=== PATIENT | female | born 1935 | race Caucasian/White ===

== ENCOUNTER 2016-05-24 10:04 | Outpatient (CLI) ==
[2016-02-26 11:22] VITALS: BMI 34.1
[2016-05-24 15:29] LABS: BASOPHILS % (AUTO) 0.7 % (0.0-3.0); EOSINOPHILS # (AUTO) 0.1 K/ul (0.0-0.7); EOSINOPHILS % (AUTO) 1.6 % (0.0-7.0); HEMATOCRIT 36.7 % (37.0-47.0); HEMOGLOBIN 10.9 g/dl (12.0-16.0); LYMPHOCYTES # (AUTO) 1.9 K/uL (0.60-3.4); LYMPHOCYTES % (AUTO) 45.2 (10.0-50.0); MEAN CORPUSCULAR HEMOGLOBIN 25.6 pg (27.0-31.0); MEAN CORPUSCULAR HGB CONC 29.7 (31.8-35.4); MEAN CORPUSCULAR VOLUME 86.4 fl (81.0-99.0); MONOCYTES # (AUTO) 0.6 K/uL (0.4-2.0); MONOCYTES % (AUTO) 12.8 (0-10); NEUTROPHILS # (AUTO) 1.7 K/ul (2.0-6.9); NEUTROPHILS % (AUTO) 39.7; PLATELET COUNT 239 10^3/uL (140-440); RED BLOOD COUNT 4.25 10^6/ul (4.20-5.40); WHITE BLOOD COUNT 4.29 K/ul (4.6-10.2)
[2016-05-24 17:16] LABS: PROTHROMBIN TIME 27.6 SEC (9.3-11.0)
[2016-05-24 17:32] LABS: ALBUMIN 3.8 g/dL (3.4-5.0); ALBUMIN/GLOBULIN RATIO 1.27; ANION GAP 13.3; BILIRUBIN,TOTAL 0.49 mg/dL (0.00-1.20); BUN/CREATININE RATIO 21.49; CALCIUM 9.5 mg/dL (8.2-10.2); CHOL/HDL RATIO 3.7 (4.5-5.5); CREATININE 1.07 mg/dL (0.60-1.30); POTASSIUM 4.3 mmol/L (3.5-5.10); TOTAL PROTEIN 6.8 g/dL (5.8-8.1)
== END 2016-05-24 10:05 | disposition home or self-care (01) ==
LOC: LAB 10:04
PROVIDERS: ATTEND General Practice
DX: D64.9 Anemia, unspecified (principal); I82.812 Embolism and thrombosis of superficial veins of left lower extremity; R73.09 Other abnormal glucose; I10 Essential (primary) hypertension; N18.3 Chronic kidney disease, stage 3 (moderate); K21.9 Gastro-esophageal reflux disease without esophagitis; Z86.718 Personal history of other venous thrombosis and embolism; Z79.899 Other long term (current) drug therapy
CPT/HCPCS: 36415; 80053; 80061; 83036; 85025; 85610

== ENCOUNTER 2016-06-28 16:18 | Outpatient (CLI) | payer OTHER ==
[2016-02-26 11:22] VITALS: BMI 34.1
[2016-06-28 17:21] LABS: PROTHROMBIN TIME 19.3 SEC (9.3-11.0)
== END 2016-06-28 16:19 | disposition home or self-care (01) ==
LOC: LAB 16:18
PROVIDERS: ATTEND General Practice
DX: Z51.81 Encounter for therapeutic drug level monitoring (principal); Z79.01 Long term (current) use of anticoagulants; Z86.718 Personal history of other venous thrombosis and embolism
CPT/HCPCS: 36415; 85610

== ENCOUNTER 2016-07-17 17:19 | Outpatient (CLI) ==
[2016-02-26 11:22] VITALS: BMI 34.1
[2016-07-17 18:12] LABS: BASOPHILS % (AUTO) 0.5 % (0.0-3.0); EOSINOPHILS # (AUTO) 0.1 K/ul (0.0-0.7); EOSINOPHILS % (AUTO) 1.2 % (0.0-7.0); HEMATOCRIT 34.6 % (37.0-47.0); HEMOGLOBIN 10.7 g/dl (12.0-16.0); IMMATURE GRANULOCYTE % (AUTO) 0.2 % (0.0-5.0); LYMPHOCYTES % (AUTO) 34.2 (10.0-50.0); MEAN CORPUSCULAR HEMOGLOBIN 25.5 pg (27.0-31.0); MEAN CORPUSCULAR HGB CONC 30.9 (31.8-35.4); MEAN CORPUSCULAR VOLUME 82.6 fl (81.0-99.0); MONOCYTES # (AUTO) 0.6 K/uL (0.4-2.0); MONOCYTES % (AUTO) 10.8 (0-10); NEUTROPHILS # (AUTO) 3.1 K/ul (2.0-6.9); NEUTROPHILS % (AUTO) 53.1; PLATELET COUNT 246 10^3/uL (140-440); RED BLOOD COUNT 4.19 10^6/ul (4.20-5.40); WHITE BLOOD COUNT 5.91 K/ul (4.6-10.2)
[2016-07-17 18:38] LABS: FLU INTERNAL QC INTERNAL QC VALID; RAPID FLU A NEGATIVE (NEGATIVE); RAPID FLU B NEGATIVE (NEGATIVE)
== END 2016-07-17 17:20 | disposition home or self-care (01) ==
LOC: LAB 17:19
PROVIDERS: ATTEND General Practice
DX: R50.9 Fever, unspecified (principal); J02.9 Acute pharyngitis, unspecified; R49.0 Dysphonia
CPT/HCPCS: 36415; 84145; 85025; 87651; 87804; 87880

== ENCOUNTER 2016-08-21 14:01 | Outpatient (CLI) ==
[2016-02-26 11:22] VITALS: BMI 34.1
[2016-08-21 14:28] LABS: PROTHROMBIN TIME 27.5 SEC (9.3-11.0)
== END 2016-08-21 14:02 | disposition home or self-care (01) ==
LOC: LAB 14:01
PROVIDERS: ATTEND General Practice
DX: Z51.81 Encounter for therapeutic drug level monitoring (principal); Z79.01 Long term (current) use of anticoagulants; I82.409 Acute embolism and thrombosis of unspecified deep veins of unspecified lower extremity
CPT/HCPCS: 36415; 85610

== ENCOUNTER 2016-09-20 09:33 | Outpatient (CLI) | payer OTHER ==
[2016-02-26 11:22] VITALS: BMI 34.1
[2016-09-20 13:17] LABS: PROTHROMBIN TIME 20.3 SEC (9.3-11.0)
[2016-09-20 13:20] LABS: BASOPHILS % (AUTO) 0.9 % (0.0-3.0); EOSINOPHILS % (AUTO) 1.1 % (0.0-7.0); HEMOGLOBIN 10.7 g/dl (12.0-16.0); IMMATURE GRANULOCYTE % (AUTO) 0.3 % (0.0-5.0); LYMPHOCYTES # (AUTO) 1.4 K/uL (0.60-3.4); LYMPHOCYTES % (AUTO) 38.4 (10.0-50.0); MEAN CORPUSCULAR HEMOGLOBIN 25.8 pg (27.0-31.0); MEAN CORPUSCULAR HGB CONC 30.6 (31.8-35.4); MEAN CORPUSCULAR VOLUME 84.3 fl (81.0-99.0); MONOCYTES # (AUTO) 0.5 K/uL (0.4-2.0); MONOCYTES % (AUTO) 14.2 (0-10); NEUTROPHILS # (AUTO) 1.6 K/ul (2.0-6.9); NEUTROPHILS % (AUTO) 45.1; PLATELET COUNT 218 10^3/uL (140-440); RED BLOOD COUNT 4.15 10^6/ul (4.20-5.40); WHITE BLOOD COUNT 3.52 K/ul (4.6-10.2)
[2016-09-20 13:21] LABS: BILIRUBIN,URINE Negative (NEGATIVE); KETONES,URINE Negative (NEGATIVE); LEUKOCYTE ESTERASE ,URINE Negative (NEGATIVE); NITRITE,URINE Negative (NEGATIVE); PROTEIN,URINE Negative (NEGATIVE); URINE, BLOOD 1+ (NEGATIVE)
[2016-09-20 13:23] LABS: ADD URINE MICROSCOPIC YES
[2016-09-20 13:33] LABS: ALBUMIN 3.6 g/dL (3.4-5.0); ALBUMIN/GLOBULIN RATIO 1.2; ANION GAP 12.6; BILIRUBIN,TOTAL 0.52 mg/dL (0.00-1.20); BUN/CREATININE RATIO 18.44; CALCIUM 9.2 mg/dL (8.2-10.2); CHOL/HDL RATIO 3.4 (4.5-5.5); CREATININE 1.03 mg/dL (0.60-1.30); POTASSIUM 4.6 mmol/L (3.5-5.10); TOTAL PROTEIN 6.6 g/dL (5.8-8.1)
== END 2016-09-20 09:34 | disposition home or self-care (01) ==
LOC: LAB 09:33
PROVIDERS: ATTEND General Practice
DX: Z51.81 Encounter for therapeutic drug level monitoring (principal); Z79.01 Long term (current) use of anticoagulants; D64.9 Anemia, unspecified; R73.03 Prediabetes; H81.10 Benign paroxysmal vertigo, unspecified ear; K21.9 Gastro-esophageal reflux disease without esophagitis; I10 Essential (primary) hypertension; I82.812 Embolism and thrombosis of superficial veins of left lower extremity; Z79.899 Other long term (current) drug therapy; Z86.718 Personal history of other venous thrombosis and embolism
CPT/HCPCS: 36415; 80053; 80061; 81001; 83036; 85025; 85610

== ENCOUNTER 2016-09-27 15:59 | Outpatient (CLI) | payer OTHER ==
[2016-02-26 11:22] VITALS: BMI 34.1
[2016-09-27 16:49] LABS: OCCULT BLOOD INTERNAL QC 1 INTERNAL QC VALID; OCCULT BLOOD INTERNAL QC 2 INTERNAL QC VALID; OCCULT BLOOD INTERNAL QC 3 INTERNAL QC VALID; OCCULT BLOOD SAMPLE 1 NEGATIVE (NEGATIVE); OCCULT BLOOD SAMPLE 2 NO SPECIMEN RECEIVED (NEGATIVE); OCCULT BLOOD SAMPLE 3 NO SPECIMEN RECEIVED (NEGATIVE)
== END 2016-09-27 16:00 | disposition home or self-care (01) ==
LOC: LAB 15:59
PROVIDERS: ATTEND General Practice
DX: D64.9 Anemia, unspecified (principal)
CPT/HCPCS: 82272

== ENCOUNTER 2016-10-18 15:39 | Outpatient (CLI) | payer OTHER ==
[2016-02-26 11:22] VITALS: BMI 34.1
--- NOTE | 2016-10-18 15:59 | DI ---
EXAM: Right foot three view HISTORY: Pain in right foot COMPARISON: None FINDINGS: No fracture or dislocation. Mild osteoarthritis first MTP joint with joint space narrowi ng. Mild scattered osteoarthritis of the interphalangeal joints and midfoot. Small to moderate altagracia ntar calcaneal spur. Mild posterior calcaneal enthesopathy. Subcutaneous edema suggested. Atherosc lerotic vascular calcification. IMPERSSION: 1. No fracture dislocation. 2. Mild osteoarthritis. 3. Small to moderate plantar calcaneal spur. 4. Subcutaneous edema suggested.
== END 2016-10-18 15:40 | disposition home or self-care (01) ==
LOC: RAD 15:39
PROVIDERS: ATTEND General Practice
DX: M79.671 Pain in right foot (principal); Z87.828 Personal history of other (healed) physical injury and trauma; I49.3 Ventricular premature depolarization
CPT/HCPCS: 93005; 93010

== ENCOUNTER 2016-11-05 16:04 | Outpatient (CLI) ==
[2016-02-26 11:22] VITALS: BMI 34.1
--- NOTE | 2016-11-05 16:37 | DI ---
EXAM: Chest two view, frontal and lateral views. HISTORY: Cough. COMPARISON: 02/26/2016. FINDINGS: The heart size is normal. Atherosclerotic calcifications present. There is no pulmonary vascular congestion. The lungs are clear save for calcified granulomatous changes. No pleural eff usion or pneumothorax is seen. No acute osseous abnormality identified. Degenerative changes prese nt throughout the spine. Moderate sized hiatal hernia noted. Clips seen in the right upper quadran t of the abdomen. Since the prior study, there has been no significant interval change. IMPRESSION: No acute cardiopulmonary process.
== END 2016-11-05 16:05 | disposition home or self-care (01) ==
LOC: RAD 16:04
PROVIDERS: ATTEND General Practice
DX: R05 Cough (principal)
CPT/HCPCS: 36415; 86710

== ENCOUNTER 2017-01-31 14:46 | Outpatient (CLI) ==
[2016-02-26 11:22] VITALS: BMI 34.1
[2017-01-31 15:55] LABS: PROTHROMBIN TIME 19.3 SEC (9.3-11.0)
--- NOTE | 2017-01-31 16:00 | US ---
EXAM: Ultrasound venous Doppler right or left lower extermity HISTORY: Personal history of other venous thrombosis and embolism COMPARISON: Left lower extremity 01/10/2016 and bilateral lower 06/30/2012 TECHNIQUE: Venous duplex ultrasound of the right and left lower extremity was performed using color, quezada-scale, and Doppler flow imaging. FINDINGS: There is partial compression and partial spontaneous flow in the right popliteal vein. There is partial compression and partial spontaneous flow in the left popliteal vein, similar to prio r examination. There is otherwise normal color flow and compression of the right and left common femoral, greater s aphenous, profunda femoral, femoral, peroneal, (right) posterior tibial, and anterior tibial veins w ithout evidence of intraluminal thrombus. Left posterior tibial vein not visualized. There is a 1.4 x 1.3 x 1.3 cm hypoechoic nodule in the soft tissues of the left mid calf, may be slig htly increased from prior examination, indeterminate etiology. IMPRESSION: 1. Right: Critical finding: Deep venous thrombosis right popliteal vein 2. 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 3. Indeterminate soft tissue nodule soft tissues left mid calf, may be slightly increased repair exa mination. Recommend follow-up. Critical finding of deep venous thrombosis called to Dr. Blandon 3:50 p.m. 01/31/2017
== END 2017-01-31 14:47 | disposition home or self-care (01) ==
LOC: RAD 14:46
PROVIDERS: ATTEND General Practice
DX: Z51.81 Encounter for therapeutic drug level monitoring (principal); Z79.01 Long term (current) use of anticoagulants; Z86.718 Personal history of other venous thrombosis and embolism; I82.812 Embolism and thrombosis of superficial veins of left lower extremity; Z86.711 Personal history of pulmonary embolism
CPT/HCPCS: 36415; 85610

== ENCOUNTER 2017-02-18 12:45 | Outpatient (CLI) | payer OTHER ==
[2016-02-26 11:22] VITALS: BMI 34.1
[2017-02-18 13:45] LABS: PROTHROMBIN TIME 18.2 SEC (9.3-11.0)
== END 2017-02-18 12:46 | disposition home or self-care (01) ==
LOC: LAB 12:45
PROVIDERS: ATTEND General Practice
DX: Z51.81 Encounter for therapeutic drug level monitoring (principal); Z79.01 Long term (current) use of anticoagulants; I82.409 Acute embolism and thrombosis of unspecified deep veins of unspecified lower extremity
CPT/HCPCS: 36415; 85610

== ENCOUNTER 2017-03-10 16:21 | Outpatient (CLI) | payer OTHER ==
[2016-02-26 11:22] VITALS: BMI 34.1
[2017-03-10 16:37] LABS: BILIRUBIN,URINE Negative (NEGATIVE); KETONES,URINE Negative (NEGATIVE); LEUKOCYTE ESTERASE ,URINE Trace (NEGATIVE); NITRITE,URINE Negative (NEGATIVE); PH,URINE 6.5 (5-9); PROTEIN,URINE Negative (NEGATIVE); URINE, BLOOD Negative (NEGATIVE)
[2017-03-10 16:38] LABS: BASOPHILS % (AUTO) 0.2 % (0.0-3.0); EOSINOPHILS % (AUTO) 0.3 % (0.0-7.0); HEMATOCRIT 33.5 % (37.0-47.0); HEMOGLOBIN 10.4 g/dl (12.0-16.0); IMMATURE GRANULOCYTE % (AUTO) 0.3 % (0.0-5.0); LYMPHOCYTES # (AUTO) 1.5 K/uL (0.60-3.4); LYMPHOCYTES % (AUTO) 26.7 (10.0-50.0); MEAN CORPUSCULAR HEMOGLOBIN 25.8 pg (27.0-31.0); MEAN CORPUSCULAR VOLUME 83.1 fl (81.0-99.0); MONOCYTES # (AUTO) 0.6 K/uL (0.4-2.0); MONOCYTES % (AUTO) 10.1 (0-10); NEUTROPHILS # (AUTO) 3.6 K/ul (2.0-6.9); NEUTROPHILS % (AUTO) 62.4; PLATELET COUNT 240 10^3/uL (140-440); RED BLOOD COUNT 4.03 10^6/ul (4.20-5.40); WHITE BLOOD COUNT 5.77 K/ul (4.6-10.2)
[2017-03-10 16:42] LABS: ADD URINE MICROSCOPIC YES
[2017-03-10 16:49] LABS: ALBUMIN 3.6 g/dL (3.4-5.0); ALBUMIN/GLOBULIN RATIO 1.16; BILIRUBIN,TOTAL 0.6 mg/dL (0.00-1.20); BUN/CREATININE RATIO 13.13; CALCIUM 9.7 mg/dL (8.2-10.2); CHOL/HDL RATIO 3.1 (4.5-5.5); CREATININE 0.99 mg/dL (0.60-1.30); TOTAL PROTEIN 6.7 g/dL (5.8-8.1)
[2017-03-10 16:52] LABS: PROTHROMBIN TIME 27.8 SEC (9.3-11.0)
== END 2017-03-10 16:22 | disposition home or self-care (01) ==
LOC: LAB 16:21
PROVIDERS: ATTEND General Practice
DX: Z51.81 Encounter for therapeutic drug level monitoring (principal); Z79.01 Long term (current) use of anticoagulants; I10 Essential (primary) hypertension; N18.3 Chronic kidney disease, stage 3 (moderate); R73.03 Prediabetes; I82.409 Acute embolism and thrombosis of unspecified deep veins of unspecified lower extremity; Z79.899 Other long term (current) drug therapy
CPT/HCPCS: 36415; 80053; 80061; 81001; 83036; 85025; 85610

== ENCOUNTER 2017-04-28 09:58 | Outpatient (CLI) ==
[2016-02-26 11:22] VITALS: BMI 34.1
[2017-04-28 10:27] LABS: PROTHROMBIN TIME 27.5 SEC (9.3-11.0)
== END 2017-04-28 09:59 | disposition home or self-care (01) ==
LOC: LAB 09:58
PROVIDERS: ATTEND General Practice
DX: Z51.81 Encounter for therapeutic drug level monitoring (principal); Z79.01 Long term (current) use of anticoagulants; I82.409 Acute embolism and thrombosis of unspecified deep veins of unspecified lower extremity
CPT/HCPCS: 36415; 85610

== ENCOUNTER 2017-05-14 16:32 | Outpatient (CLI) ==
[2016-02-26 11:22] VITALS: BMI 34.1
== END 2017-05-14 16:33 | disposition home or self-care (01) ==
LOC: LAB 16:32
PROVIDERS: ATTEND General Practice
DX: Z51.81 Encounter for therapeutic drug level monitoring (principal); Z79.01 Long term (current) use of anticoagulants; I82.409 Acute embolism and thrombosis of unspecified deep veins of unspecified lower extremity
CPT/HCPCS: 36415; 85610

== ENCOUNTER 2017-05-16 16:57 | Outpatient (CLI) ==
[2016-02-26 11:22] VITALS: BMI 34.1
== END 2017-05-16 16:58 | disposition home or self-care (01) ==
LOC: NONPT 16:57
PROVIDERS: ATTEND General Practice
DX: T14.8XXA Other injury of unspecified body region, initial encounter (principal)
CPT/HCPCS: 87070; 87186

== ENCOUNTER 2017-05-22 12:29 | Outpatient (CLI) ==
[2016-02-26 11:22] VITALS: BMI 34.1
== END 2017-05-22 12:30 | disposition home or self-care (01) ==
LOC: LAB 12:29
PROVIDERS: ATTEND General Practice
DX: Z51.81 Encounter for therapeutic drug level monitoring (principal); Z79.01 Long term (current) use of anticoagulants; I82.409 Acute embolism and thrombosis of unspecified deep veins of unspecified lower extremity
CPT/HCPCS: 36415; 85610

== ENCOUNTER 2017-08-25 07:54 | Outpatient (CLI) | payer OTHER ==
[2016-02-26 11:22] VITALS: BMI 34.1
== END 2017-08-25 07:55 | disposition home or self-care (01) ==
LOC: LAB 07:54
PROVIDERS: ATTEND General Practice
DX: R73.03 Prediabetes (principal); I10 Essential (primary) hypertension; N18.3 Chronic kidney disease, stage 3 (moderate); I82.432 Acute embolism and thrombosis of left popliteal vein; I82.531 Chronic embolism and thrombosis of right popliteal vein; Z86.19 Personal history of other infectious and parasitic diseases; Z86.711 Personal history of pulmonary embolism; Z79.899 Other long term (current) drug therapy
CPT/HCPCS: 36415; 80053; 80061; 81001; 85025; 85610; 87086

== ENCOUNTER 2017-09-08 15:32 | Outpatient (CLI) ==
[2016-02-26 11:22] VITALS: BMI 34.1
== END 2017-09-08 15:33 | disposition home or self-care (01) ==
LOC: LAB 15:32
PROVIDERS: ATTEND General Practice
DX: Z51.81 Encounter for therapeutic drug level monitoring (principal); Z79.01 Long term (current) use of anticoagulants; I82.409 Acute embolism and thrombosis of unspecified deep veins of unspecified lower extremity
CPT/HCPCS: 36415; 85610

== ENCOUNTER 2017-09-19 14:31 | Outpatient (CLI) ==
[2016-02-26 11:22] VITALS: BMI 34.1
== END 2017-09-19 14:32 | disposition home or self-care (01) ==
LOC: FCC-LAB 14:31
PROVIDERS: ATTEND General Practice
DX: I82.432 Acute embolism and thrombosis of left popliteal vein (principal); I82.531 Chronic embolism and thrombosis of right popliteal vein
CPT/HCPCS: 36415; 85610

== ENCOUNTER 2017-10-27 07:39 | Outpatient (CLI) ==
[2016-02-26 11:22] VITALS: BMI 34.1
== END 2017-10-27 07:40 | disposition home or self-care (01) ==
LOC: CAR 07:39
PROVIDERS: ATTEND General Practice
DX: N18.3 Chronic kidney disease, stage 3 (moderate) (principal); I10 Essential (primary) hypertension; I82.432 Acute embolism and thrombosis of left popliteal vein; I82.531 Chronic embolism and thrombosis of right popliteal vein; Z79.01 Long term (current) use of anticoagulants; Z79.899 Other long term (current) drug therapy
CPT/HCPCS: 36415; 80053; 80061; 81001; 85025; 93005; 93010

== ENCOUNTER 2017-10-31 12:48 | Outpatient (CLI) | payer OTHER ==
[2016-02-26 11:22] VITALS: BMI 34.1
== END 2017-10-31 12:49 | disposition home or self-care (01) ==
LOC: FCC-LAB 12:48
PROVIDERS: ATTEND General Practice
DX: Z51.81 Encounter for therapeutic drug level monitoring (principal); Z79.01 Long term (current) use of anticoagulants
CPT/HCPCS: 36415; 85610

== ENCOUNTER 2017-11-14 07:18 | Outpatient (CLI) | payer OTHER ==
[2016-02-26 11:22] VITALS: BMI 34.1
== END 2017-11-14 07:19 | disposition home or self-care (01) ==
LOC: LAB 07:18
PROVIDERS: ATTEND General Practice
DX: Z51.81 Encounter for therapeutic drug level monitoring (principal); Z79.01 Long term (current) use of anticoagulants
CPT/HCPCS: 36415; 85610

== ENCOUNTER 2017-11-17 06:26 | Day surgery (SDC) ==
[2016-02-26 11:22] VITALS: BMI 34.1
[2017-11-17] MEDS: LIDOCAINE HCL 1% SDV INJ PRN ×2 (07:15→07:49)
[2017-11-17] MEDS ORDERED: LIDOCAINE 1% 20 ML MDV ONE (07:15)
[2017-11-17] MEDS: TETRACAINE 0.5% UNIT-DOSE OP PRN ×3 (07:16→07:46)
[2017-11-17] MEDS: CYCLOGYL 2% OPTH OP PRN ×3 (07:16→07:27)
[2017-11-17] MEDS: OCUFEN 0.03% OPTH SOL OP PRN ×2 (07:17→07:29)
[2017-11-17] MEDS: AK-DILATE 10% OPTH SOL OP PRN ×3 (07:17→07:27)
[2017-11-17] MEDS ORDERED: BETADINE OPTH PREP OP ONE (07:19)
[2017-11-17] MEDS ORDERED: DIAMOX PO STA (07:19)
[2017-11-17] MEDS ORDERED: BSS WITH EPINEPHRINE OP ONE (07:34)
[2017-11-17] MEDS ORDERED: VERSED ONE (07:45)
[2017-11-17] MEDS ORDERED: DIAMOX ONE (09:00)
--- NOTE | 2017-11-18 09:33 | OP ---
PREOPERATIVE DIAGNOSIS: ADVANCED CORTICAL CATARACT, RIGHT EYE. POSTOPERATIVE DIAGNOSIS: SAME. OPERATION PHACOEMULSIFICATION ASPIRATION OF CATARACT RIGHT EYE USING IRIS RETRACTORS WITH IOL. PLACEMENT OF POSTERIOR CHAMBER LENS. PHACO TIME 31.5 SECONDS AT 4.0% POWER. LENS MODEL TECNIS [id number]. DIOPTER +23.5D. TECHNIQUE: CLEAR CORNEA. ANESTHESIA: TOPICAL ANESTHESIA W/ANESTHESIA MONITORING. OPERATIVE REPORT: Topical anesthesia consisting of Tetracaine was applied to the cornea and Xylocaine Methyl Paraben free of MFP was injected intracamerally into the anterior chamber. The patient was then brought into the operating room , prepped and draped in the usual ophthalmic manner. A lid speculum was placed and the operating microscope was used. A paracentesis was made at the 3 o' clock position. A clear corneal incision was made just out to the limbus. The anterior chamber was entered just inside the clear cornea. Viscoelastic was injected into the anterior chamber. A capsulotomy was performed with a bent # 27 gauge needle. Phacoemulsification was then performed in the posterior chamber. After completion of the phacoemulsification, residual cortical material was aspirated with the irrigation-aspiration system. The posterior capsule was polished. Viscoelastic was injected into the anterior and posterior chambers to inflate the capsular bag. Lens were placed via an Unfolder system and stabilized in the bag. Viscoelastic was removed from the anterior chamber. The wound was checked for any leakage. The four sponges were removed from the fornix. Topical antibiotic steroid and nonsteroidal drops were also applied to the cornea. A Zimmer shield was applied. The patient left the operating room in good condition without any complications. INTRAOPERATIVE MEDICATIONS: Xylocaine Methyl Paraben Free MPF MTDD
[2017-11-20 11:33] VITALS: BP 136/67; TEMP 98.5
== END 2017-11-17 09:15 | disposition home or self-care (01) ==
LOC: SURG 06:26
PROVIDERS: ATTEND Ophthalmology
DX: H25.13 Age-related nuclear cataract, bilateral (principal); H25.013 Cortical age-related cataract, bilateral; H35.3131 Nonexudative age-related macular degeneration, bilateral, early dry stage

== ENCOUNTER 2017-12-22 06:45 | Day surgery (SDC) | payer OTHER ==
[2016-02-26 11:22] VITALS: BMI 34.1
[2017-12-22] MEDS: TETRACAINE 0.5% UNIT-DOSE OP PRN ×3 (07:25→10:01)
[2017-12-22] MEDS: KETOROLAC 0.5% OPTH SOL OP PRN ×2 (07:25→07:40)
[2017-12-22] MEDS: CYCLOGYL 2% OPTH OP PRN ×3 (07:26→07:36)
[2017-12-22] MEDS: AK-DILATE 10% OPTH SOL OP PRN ×3 (07:26→07:36)
[2017-12-22] MEDS ORDERED: LIDOCAINE 1% 20 ML MDV ID STA (08:03)
[2017-12-22] MEDS ORDERED: SUBLIMAZE ONE (10:10)
[2017-12-22] MEDS ORDERED: DIAMOX ONE (10:50)
[2017-12-22] MEDS: DIAMOX PO STA ×2 (10:50→16:46)
[2017-12-22 13:23] VITALS: BP 134/87; TEMP 97.6
--- NOTE | 2017-12-23 09:55 | OP ---
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 POSTOPERATIVE DIAGNOSIS: SAME. OPERATION PHACOEMULSIFICATION CATARACT EXTRACTION RIGHT EYE WITH EYE RING. PLACEMENT OF POSTERIOR CHAMBER LENS. PHACO TIME 45.7 SECONDS AT 3% POWER. LENS MODEL TECGILMA [id number]. DIOPTER +23.5D. TECHNIQUE: CLEAR CORNEA. ANESTHESIA: TOPICAL ANESTHESIA W/ANESTHESIA MONITORING. OPERATIVE REPORT: Topical anesthesia consisting of Tetracaine was applied to the cornea and Xylocaine Methyl Paraben free of MFP was injected intracamerally into the anterior chamber. The patient was then brought into the operating room , prepped and draped in the usual ophthalmic manner. A lid speculum was placed and the operating microscope was used. A paracentesis was made at the 3 o' clock position. A clear corneal incision was made just out to the limbus. The anterior chamber was entered just inside the clear cornea. Viscoelastic was injected into the anterior chamber. A capsulotomy was performed with a bent # 27 gauge needle. Phacoemulsification was then performed in the posterior chamber. After completion of the phacoemulsification, residual cortical material was aspirated with the irrigation-aspiration system. The posterior capsule was polished. Viscoelastic was injected into the anterior and posterior chambers to inflate the capsular bag. Lens were placed via an Unfolder system and stabilized in the bag. Viscoelastic was removed from the anterior chamber. The wound was checked for any leakage. The four sponges were removed from the fornix. Topical antibiotic steroid and nonsteroidal drops were also applied to the cornea. A Zimmer shield was applied. The patient left the operating room in good condition without any complications. INTRAOPERATIVE MEDICATIONS: Xylocaine Methyl Paraben Free MPF MTDD
== END 2017-12-22 11:00 | disposition home or self-care (01) ==
LOC: SURG 06:45
PROVIDERS: ATTEND Ophthalmology
DX: H25.13 Age-related nuclear cataract, bilateral (principal); H25.013 Cortical age-related cataract, bilateral

== ENCOUNTER 2018-01-23 13:52 | Outpatient (CLI) | payer OTHER ==
[2016-02-26 11:22] VITALS: BMI 34.1
== END 2018-01-23 13:53 | disposition home or self-care (01) ==
LOC: FCC-LAB 13:52
PROVIDERS: ATTEND General Practice
DX: Z51.81 Encounter for therapeutic drug level monitoring (principal); Z79.01 Long term (current) use of anticoagulants
CPT/HCPCS: 82272

== ENCOUNTER 2018-03-20 07:32 | Outpatient (CLI) | payer OTHER ==
[2016-02-26 11:22] VITALS: BMI 34.1
--- NOTE | 2018-03-20 08:26 | CT ---
EXAM: CT head without contrast. HISTORY: Visual disturbance. COMPARISON: 03/03/2015. TECHNIQUE: Multiple axial images of the brain were obtained from the skull base through the vertex w ithout intravenous contrast. Multiplanar reformats were provided. FINDINGS: There is no intracranial hemorrhage or extraaxial collection. The quezada-white differentiat ion is maintained without evidence for acute large vascular territory infarction. There are areas of periventricular and subcortical white matter low attenuation. The cortical sulci and cerebral ventr icles are symmetrically enlarged. The basal cisterns are well visualized. There is no hydrocephalus , mass effect, or midline shift. The paranasal sinuses and mastoid air cells are clear. The calvari um is intact. Atherosclerotic calcifications are present. Since the prior study, there has been no significant interval change. IMPRESSION: 1. No acute intracranial abnormality. 2. Chronic small vessel ischemic changes and atrophy.
--- NOTE | 2018-03-20 08:27 | DI ---
EXAM: Chest two view, frontal and lateral views. HISTORY: Cough. COMPARISON: 11/05/2016. FINDINGS: The heart size is normal. Atherosclerotic calcifications present. There is no pulmonary vascular congestion. Lateral left basilar scarring again seen. Otherwise, the lungs are clear save for calcified granulomatous changes. No pleural effusion or pneumothorax is seen. No acute osseous abnormality identified. Hiatal hernia again noted. Clips present in the upper abdomen. Since the pr ior study, there has been no significant interval change. IMPRESSION: No acute cardiopulmonary process.
--- NOTE | 2018-03-20 08:37 | US ---
EXAM: Ultrasound bilateral carotid duplex. HISTORY: Visual disturbances. COMPARISON: 02/26/1960. TECHNIQUE: A duplex Doppler study was performed consisting of integrated two dimensional (2D) real-t ila imaging color flow Doppler and Doppler spectral analysis utilizing linear array probes. FINDINGS: Please note that estimates of internal carotid artery stenoses are based upon NASCET crite rafy. Right carotid: Mild plaquing without 50% or greater stenosis. Peak systolic velocity measurement in the right internal carotid artery is 1.1 meters per second. Right internal to common carotid artery peak systolic velocity ratio measures 2.4. End diastolic velocity measurement in the right internal carotid artery is 0.3 meters per second. Flow in the right vertebral artery is antegrade. Left carotid: Mild plaquing without 50% or greater stenosis. Peak systolic velocity measurement in the left internal carotid artery is 0.8 meters per second. Left internal to common carotid artery pe ak systolic velocity ratio measures 1.4. End diastolic velocity measurement in the left internal car otid artery measures 0.2 meters per second. Flow in the left vertebral artery is antegrade. Since the prior study, there has been no significant interval change. IMPRESSION: 1. No evidence for 50% or greater stenosis in the right or left internal carotid artery. 2. Antegrade flow in both vertebral arteries.
--- NOTE | 2018-03-20 16:31 | CT ---
EXAM: CT of the cervical spine without contrast History: Cervicalgia. Technique: Multiplanar CT images through the cervical spine were obtained without the administration of IV contrast Findings: Calcified granulomas seen within the left upper lobe. 1.5 cm left thyroid nodule. Athero sclerotic vascular calcifications. Osteopenia. Suspect a Zenker's diverticulum of the esophagus at about the level of C5 measuring about 2.5 cm. No acute fracture or subluxation of the cervical spine. No prevertebral soft tissue swelling. Prede ntal space is not widened. Moderate disc space narrowing at C5-6. Mild to moderate disc space narro wing seen elsewhere. C2-3: No significant bony central canal stenosis. Moderate right and mild left bony neural foramina l narrowing secondary to uncovertebral and facet hypertrophy. C3-4: No significant bony central canal stenosis. Moderate left and mild right bony neural foramina l narrowing secondary to uncovertebral and facet hypertrophy. C4-5: No significant bony central canal stenosis. Moderate to severe right and mild left bony neura l foraminal narrowing secondary to uncovertebral and facet hypertrophy. C5-6: No significant bony central canal stenosis. Moderate to severe bilateral bony neural foramina l narrowing secondary to uncovertebral and facet hypertrophy. C6-7: No significant bony central canal stenosis. Mild to moderate bilateral bony neural foraminal narrowing secondary to uncovertebral and facet hypertrophy. Impression: 1. No acute osseous abnormality of the cervical spine. 2. Osteopenia. 3. Moderate degenerative disc disease at C5-6. 4. Level by level analysis as detailed above. 5. 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
== END 2018-03-20 07:33 | disposition home or self-care (01) ==
LOC: RAD 07:32
PROVIDERS: ATTEND General Practice
DX: I49.9 Cardiac arrhythmia, unspecified (principal); M54.2 Cervicalgia; I10 Essential (primary) hypertension; R42 Dizziness and giddiness; H53.9 Unspecified visual disturbance; R05 Cough; R51 Headache; Z79.899 Other long term (current) drug therapy
CPT/HCPCS: 36415; 80053; 81001; 85025; 85610; 85651; 86140; 93005; 93010

== ENCOUNTER 2018-03-23 10:45 | Outpatient (CLI) | payer OTHER ==
[2016-02-26 11:22] VITALS: BMI 34.1
== END 2018-03-23 10:46 | disposition home or self-care (01) ==
LOC: RHC-LAB 10:45
PROVIDERS: ATTEND General Practice
DX: R07.2 Precordial pain (principal)
CPT/HCPCS: 36415; 85610

== ENCOUNTER 2018-05-21 12:29 | Outpatient (CLI) | payer OTHER ==
[2016-02-26 11:22] VITALS: BMI 34.1
== END 2018-05-21 12:30 | disposition home or self-care (01) ==
LOC: RHC-LAB 12:29
PROVIDERS: ATTEND General Practice
DX: Z51.81 Encounter for therapeutic drug level monitoring (principal); Z79.01 Long term (current) use of anticoagulants; I10 Essential (primary) hypertension; N18.3 Chronic kidney disease, stage 3 (moderate); R73.03 Prediabetes
CPT/HCPCS: 36415; 80053; 80061; 81001; 85025; 85610

== ENCOUNTER 2018-07-27 15:53 | Outpatient (CLI) | payer OTHER ==
[2016-02-26 11:22] VITALS: BMI 34.1
== END 2018-07-27 15:54 | disposition home or self-care (01) ==
LOC: RHC-LAB 15:53
PROVIDERS: ATTEND General Practice
DX: J02.9 Acute pharyngitis, unspecified (principal); R05 Cough
CPT/HCPCS: 87502; 87651

== ENCOUNTER 2018-07-31 12:26 | Outpatient (CLI) | payer OTHER ==
[2016-02-26 11:22] VITALS: BMI 34.1
== END 2018-07-31 12:27 | disposition home or self-care (01) ==
LOC: RHC-LAB 12:26
PROVIDERS: ATTEND General Practice
DX: I82.531 Chronic embolism and thrombosis of right popliteal vein (principal); I82.432 Acute embolism and thrombosis of left popliteal vein; Z79.01 Long term (current) use of anticoagulants; Z86.711 Personal history of pulmonary embolism

== ENCOUNTER 2018-08-14 21:00 | Emergency (ER) | payer OTHER ==
[2018-08-14 21:06] VITALS: TEMP 98.8; BMI 31.1
[2018-08-14] MEDS ORDERED: SODIUM CHLORIDE 1,000 ML IV STA ×2 (21:12→23:06)
[2018-08-14] MEDS ORDERED: ZOFRAN 4 MG/2 ML IVP STA (21:13)
[2018-08-14] MEDS ORDERED: PROTONIX IV IVP STA (21:14)
--- NOTE | 2018-08-14 22:51 | CT ---
EXAM: CT of the abdomen and pelvis without contrast. HISTORY: Vomiting. PROCEDURE: Contiguous axial CT images of the abdomen and pelvis without contrast with coronal and sa gittal reformats. FINDINGS: Comparison made with CT of 04/04/2013. The liver is normal in appearance. The gallbladder is surgically absent. The pancreas, spleen, adrenal glands and kidneys are normal in appearance. T he abdominal aorta is within normal limits in diameter. There are atherosclerotic calcifications in the major arteries of the abdomen and pelvis. There is a large hiatal hernia which is incompletely v isualized secondary to termination of image acquisition. The appendix is not visualized. There is d iverticulosis of the colon with no evidence of diverticulitis. No free fluid or free air in the abdo men or pelvis. The bladder is minimally filled which limits the evaluation. The uterus is surgicall y absent. There are degenerative changes in the spine. Impression: Diverticulosis of the colon with no evidence of diverticulitis. Large hiatal hernia as described. Atherosclerotic vascular disease. Cholecystectomy. Hysterectomy.
--- NOTE | 2018-08-15 05:55 | ED.PDOC ---
General ED Provider: Dr. JAMIE CHAVEZ-ER Chief Complaint: Nausea/Vomiting Stated Complaint: vomiting and diarrhea Time Seen by Physician: 21:05 Mode of Arrival: Walk-In Information Source: Patient Exam Limitations: No limitations Primary Care Provider[facility] Nursing and Triage Documentation Reviewed and Agree: Yes Does patient meet sepsis criteria?: No System Inflammatory Response Syndrome: Not Applicable Sepsis Protocol: For patient's 13 years and over: Temp is 96.8 and below OR 101 and greater Pulse >90 BPM Resp >20/minute Acutely Altered Mental Status Are patient's symptoms suggestive of a new infection, such as: -Pneumonia -Skin, Soft Tissue -Endocarditis -UTI -Bone, Joint Infection -Implantable Device -Acute Abdominal Infection -Wound Infection -Meningitis -Blood Stream Catheter Infection -Unknown GI Complaint Exam - Vomiting/Diarrhea Complaint/Exam Onset/Duration: 6hrs Initial Severity: Mild Current Severity: Mild Character of Vomiting: Reports: Non-bilious Aggravating: Reports: None Alleviating: Reports: None Associated Signs and Symptoms: Denies: Dizziness, Light-headedness, Melena, Hematemesis, Fever, Abdominal pain, Cramping Abdominal Findings: Present: None Kussmaul Respirations Present: No Differential Diagnoses: Dehydration, Viral Gastroenteritis Review of Systems - Review Of Systems Constitutional: Reports: No symptoms Eyes: Reports: No symptoms Ears, Nose, Mouth, Throat: Reports: No symptoms Respiratory: Reports: No symptoms Cardiac: Reports: No symptoms GI: Reports: Diarrhea, Nausea, Vomiting : Reports: No symptoms Musculoskeletal: Reports: No symptoms Skin: Reports: No symptoms Neurological: Reports: No symptoms Endocrine: Reports: No symptoms Hematologic/Lymphatic: Reports: No symptoms All Other Systems: Reviewed and Negative Past Medical History - Past Medical History Previously Healthy: Yes Endocrine: Reports: Hypothyroid Cardiovascular: Reports: Hypertension, DVT (old record) Respiratory: Reports: None, COPD (old record), Pneumonia (old record), PE (old record) Hematological: Reports: None Gastrointestinal: Reports: None, GERD (old record) Genitourinary: Reports: None Neuro/Psych: Reports: None, Dementia (old record) Musculoskeletal: Reports: Arthritis Cancer: Reports: None Last Menstrual Period: 1961 Other Pertinent Past Medical History: thyroidectomy, colon polypectomy, bladder repair x 2 - Surgical History General Surgical History: Reports: Hysterectomy, Tubal ligation - Family History Family History: Reports: Unknown - Social History Smoking Status: Never smoker Hx Substance Use: No Alcohol Screening: None - Immunizations Tetanus Shot up to Date: No Physical Exam - Physical Exam Appearance: Well-appearing Eyes: JUSTIN, EOMI, Conjunctiva clear ENT: Ears normal, Nose normal, Oropharynx normal Neck: Supple Respiratory: Airway patent, Breath sounds clear, Breath sounds equal, Respirations nonlabored Cardiovascular: RRR, Pulses normal, No rub, No murmur GI/: Soft, Nontender, No masses, Bowel sounds normal, No Organomegaly Musculoskeletal: Normal strength, ROM intact, No edema, No calf tenderness Skin: Warm, Dry, Normal color Neurological: Sensation intact, Motor intact, Reflexes intact, Cranial nerves intact, Alert, Oriented Psychiatric: Affect appropriate, Mood appropriate Interpretation - Radiology Interpretation Radiology Interpretation By: Radiologist Radiology Results: Negative Exam Interpreted: CT Scan - EKG Interpretation Time of EKG #1: 05:55 Rate: Normal Rhythm: Sinus Ectopy: None [place]: NL ST Segment: Normal Interpretation: nsr Critical Care Note - Critical Care Note Total Time (mins): 0 Course - Course Hematology/Chemistry: 08/14/18 21:27 08/14/18 21:27 Orders, Labs, Meds: Lab Review 08/14/18 08/14/18 08/14/18 21:27 21:27 21:27 WBC 3.36 L RBC 4.14 L Hgb 10.6 L Hct 34.8 L MCV 84.1 MCH 25.6 L MCHC 30.5 L RDW Coeff of [place]iel[place] 17.2 H Plt Count 191 Immature Gran % (Auto) 0.3 Neut % (Auto) 57.8 Lymph % (Auto) 20.8 [place] % (Auto) 19.9 H Eos % (Auto) 0.6 Baso % (Auto) 0.6 Immature Gran # (Auto) 0.0 Neut # (Auto) 1.9 L Lymph # (Auto) 0.7 [place] # (Auto) 0.7 Eos # (Auto) 0.0 Baso # (Auto) 0.0 ESR 13 Sodium 138.9 Potassium 3.30 L Chloride 102.2 Carbon Dioxide 27.8 Anion Gap 12.20 BUN 22.3 H Creatinine 0.85 Estimated GFR (MDRD) 64.00 BUN/Creatinine Ratio 26.23 Glucose 97.4 Calcium 9.21 Total Bilirubin 0.59 AST 32.6 ALT 14.5 Alkaline Phosphatase 69.6 Total Creatine Kinase Troponin I Total Protein 7.20 Albumin 4.63 Globulin 2.57 Albumin/Globulin Ratio 1.80 Amylase 78.0 Lipase 107.4 Urine Color Urine Clarity Urine pH Ur Specific [place] Urine Protein Urine Glucose (UA) Urine Ketones Urine Blood Urine Nitrite Urine Bilirubin Urine Urobilinogen Ur Leukocyte Esterase Urine Microscopic RBC Urine Microscopic WBC Ur Squamous Epith Cells Urine Bacteria Urine Mucus Influ A Molecular Assay Influ B Molecular Assay 08/14/18 08/14/18 08/14/18 21:27 21:30 21:49 WBC RBC Hgb Hct MCV MCH MCHC RDW Coeff of [place] Plt Count Immature Gran % (Auto) Neut % (Auto) Lymph % (Auto) [place] % (Auto) Eos % (Auto) Baso % (Auto) Immature Gran # (Auto) Neut # (Auto) Lymph # (Auto) [place] # (Auto) Eos # (Auto) Baso # (Auto) ESR Sodium Potassium Chloride Carbon Dioxide Anion Gap BUN Creatinine Estimated GFR (MDRD) BUN/Creatinine Ratio Glucose Calcium Total Bilirubin AST ALT Alkaline Phosphatase Total Creatine Kinase 47.1 Troponin I < 0.012 Total Protein Albumin Globulin Albumin/Globulin Ratio Amylase Lipase Urine Color Yellow Urine Clarity Slightly Urine pH 5.5 Ur Specific [place] >=1.030 Urine Protein 2+ Urine Glucose (UA) Negative Urine Ketones Negative Urine Blood 2+ Urine Nitrite Negative Urine Bilirubin Negative Urine Urobilinogen 0.2 Ur Leukocyte Esterase 1+ Urine Microscopic RBC 10-20 Urine Microscopic WBC 10-20 Ur Squamous Epith Cells 5-10 Urine Bacteria 1+ Urine Mucus 1+ Influ A Molecular Assay Negative by naat Influ B Molecular Assay Negative by naat Orders Category Date Time Status EKG-(ED ONLY) Stat CARDIO 08/14/18 21:12 Completed ED IV/MEDIPORT/POWERPORT .ONCE EMERGENCY 08/14/18 21:12 Active AMYLASE Stat LAB 08/14/18 21:27 Completed CBC W/ AUTO DIFF Stat LAB 08/14/18 21:27 Completed COMPREHENSIVE METABOLIC PANEL Stat LAB 08/14/18 21:27 Completed CREATINE KINASE Stat LAB 08/14/18 21:27 Completed ESR Stat LAB 08/14/18 21:27 Completed FLU A/B MOLECULAR Stat LAB 08/14/18 21:30 Completed LIPASE Stat LAB 08/14/18 21:27 Completed MOLECULAR GROUP A STREP Stat LAB 08/14/18 21:30 Completed TROPONIN I Stat LAB 08/14/18 21:27 Completed URINALYSIS C & S IF INDICATED Stat LAB 08/14/18 21:49 Completed URINE CULTURE Stat LAB 08/14/18 21:49 Received 0.9 % Sodium Chloride [Saline Flush] MEDS 08/14/18 21:12 Ordered 1 syr IVF PRN PRN Ondansetron HCl/Pf [Zofran 4 mg/2 ml] MEDS 08/14/18 21:13 Discontinued 4 mg IVP ONCE STA Pantoprazole Sodium [Protonix IV] MEDS 08/14/18 21:14 Discontinued 40 mg IVP ONCE STA Sodium Chloride 0.9% [Sodium Chloride] 1,000 ml MEDS 08/14/18 23:06 Discontinued IV 200 mls/hr Sodium Chloride 0.9% [Sodium Chloride] 1,000 ml MEDS 08/14/18 21:[address] ABDOMEN/PELVIS WO CONTRAST Stat RADS 08/14/18 21:13 Completed Medications Generic Name Dose Route Start Last Admin Trade Name Freq PRN Reason Stop Dose Admin Sodium Chloride 1 syr 08/14/18 21:12 08/14/18 21:38 Saline Flush IVF 1 syr PRN PRN Administration To flush IV Discontinued Medications Generic Name Dose Route Start Last Admin Trade Name Freq PRN Reason Stop Dose Admin Sodium Chloride 1,000 mls @ 1,000 mls/hr 08/14/18 21:12 08/14/18 21:31 Sodium Chloride IV 08/14/18 22:11 1,000 mls/hr BOLUS STA Administration Sodium Chloride 1,000 mls @ 200 mls/hr 08/14/18 23:06 08/14/18 23:24 Sodium Chloride IV 08/15/18 04:05 200 mls/hr .Q5H STA Administration Ondansetron HCl 4 mg 08/14/18 21:13 08/14/18 21:32 Zofran 4 Mg/2 Ml IVP 08/14/18 21:14 4 mg ONCE STA Administration Pantoprazole Sodium 40 mg 08/14/18 21:14 08/14/18 21:34 Protonix Iv IVP 08/14/18 21:15 40 mg ONCE STA Administration Vital Signs: Temp Pulse Resp BP Pulse Ox 08/14/18 21:01 98.8 F 79 20 164/81 H 96 Departure - Departure Time of Disposition: 05:56 Disposition: HOME SELF-CARE Discharge Problem: Gastroenteritis Instructions: Gastroenteritis (ED) Condition: Good Pt referred to PMD for follow-up: No IPMP verified?: No Additional Instructions: return prn--avoid dairy products for 3 days--zofran 4mg q 4hr prn #4 Allergies/Adverse Reactions: Allergies codeine Adverse Reaction (Verified 08/14/18 21:06) meperidine HCl [From Demerol] Adverse Reaction (Verified 08/14/18 21:06) Home Medications: Ambulatory Orders Acetaminophen 325 mg PO DAILY PRN #30 tab-cap 03/03/15 Meclizine HCl 12.5 mg PO 1700 02/26/16 Disposition Discussed With: Patient
[2018-08-15 06:01] VITALS: BP 147/84
== END 2018-08-15 06:00 | disposition home or self-care (01) ==
LOC: ED 21:00
DX: K52.9 Noninfective gastroenteritis and colitis, unspecified (principal); E03.9 Hypothyroidism, unspecified; I10 Essential (primary) hypertension
CPT/HCPCS: 36415; 80053; 81001; 82150; 82550; 83690; 84484; 85025; 85651; 87086; 87502; 87651; 93005; 93010; 96361; 96374; 96375; 99283

== ENCOUNTER 2018-11-20 21:53 | Inpatient (IN) ==
[2018-11-20] MEDS ORDERED: DILAUDID 1 MG/ML SYRINGE IM STA (22:15)
[2018-11-20] MEDS ORDERED: DECADRON 4 MG/ML SDV IM STA (22:15)
--- NOTE | 2018-11-20 23:26 | CT ---
EXAM: CT of the lumbar spine without contrast. HISTORY: Low back pain. PROCEDURE: Contiguous axial CT images of the lumbar spine without contrast with multiplanar reformat s. FINDINGS: Comparison made with CT of 08/14/2018. There is 6 mm anterolisthesis of L5 on S1. There i s normal alignment of the lumbar facets. There is an acute L3 compression fracture with up to 40% lo ss of vertebral body height. No retropulsion. The intervertebral disc spaces are maintained. There is multilevel facet arthropathy. Impression: Acute L3 compression fracture as described. 6 mm anterolisthesis of L5 on S1 secondary to facet arthropathy. Multilevel degenerative changes as described.
--- NOTE | 2018-11-21 | ED.PDOC ---
General ED Provider: Dr. JAMIE CHAVEZ-ER Chief Complaint: Back Pain Stated Complaint: my back has been hurting for 3 ddays Time Seen by Physician: 21:55 Mode of Arrival: Wheelchair Information Source: Patient Exam Limitations: No limitations Primary [facility] Nursing and Triage Documentation Reviewed and Agree: Yes Does patient meet sepsis criteria?: No System Inflammatory Response Syndrome: Not Applicable Sepsis Protocol: For patient's 13 years and over: Temp is 96.8 and below OR 101 and greater Pulse >90 BPM Resp >20/minute Acutely Altered Mental Status Are patient's symptoms suggestive of a new infection, such as: -Pneumonia -Skin, Soft Tissue -Endocarditis -UTI -Bone, Joint Infection -Implantable Device -Acute Abdominal Infection -Wound Infection -Meningitis -Blood Stream Catheter Infection -Unknown Musculoskeletal Complaint Exam - Back Pain Complaint/Exam Mechanism of Injury: Reports: No known trauma Onset/Duration: 3 days Symptoms Are: Still present Timing: Constant Initial Severity: Mild Current Severity: Moderate Location: Reports: Discrete Character: Reports: Dull, Aching, Spasmodic Aggravating: Reports: Movements, Lifting, Bending, Walking Alleviating: Reports: None Associated Signs and Symptoms: Denies: Swelling, Redness, Bruising, Fever, Weakness, Numbness, Tingling, Abdominal pain, Flank pain, Bladder incontinence, Bowel incontinence, Weight loss, Pain with weight bearing Focal Tenderness: Yes Paraspinal Muscle Tenderness: Yes Paraspinal Muscle Spasm: No Scoliosis: No Lordosis: No Kyphosis: No SLR Test: Right Negative, Left Negative Hip Motion Testing Pain: Right Negative, Left Negative Focal Weakness: Present: None Focal Sensory Loss: Present: None Gait: Present: Abnormal Differential Diagnoses: Fracture Review of Systems - Review Of Systems Constitutional: Reports: No symptoms Eyes: Reports: No symptoms Ears, Nose, Mouth, Throat: Reports: No symptoms Respiratory: Reports: No symptoms Cardiac: Reports: No symptoms GI: Reports: No symptoms : Reports: No symptoms Musculoskeletal: Reports: Back pain Skin: Reports: No symptoms Neurological: Reports: No symptoms Endocrine: Reports: No symptoms Hematologic/Lymphatic: Reports: No symptoms All Other Systems: Reviewed and Negative Past Medical History - Past Medical History Previously Healthy: Yes Endocrine: Reports: Hypothyroid Cardiovascular: Reports: Hypertension, DVT (old record) Respiratory: Reports: None, COPD (old record), Pneumonia (old record), PE (old record) Hematological: Reports: None Gastrointestinal: Reports: None, GERD (old record) Genitourinary: Reports: None Neuro/Psych: Reports: None, Dementia (old record) Musculoskeletal: Reports: Arthritis Cancer: Reports: None Last Menstrual Period: 1961 Other Pertinent Past Medical History: thyroidectomy, colon polypectomy, bladder repair x 2 - Surgical History General Surgical History: Reports: Hysterectomy, Tubal ligation - Family History Family History: Reports: Unknown - Social History Smoking Status: Never smoker Hx Substance Use: No Alcohol Screening: None - Immunizations Tetanus Shot up to Date: No (unknown) Physical Exam - Physical Exam Appearance: Well-appearing, No pain distress, Well-nourished Pain Distress: Moderate Eyes: JUTSIN, EOMI, Conjunctiva clear ENT: Ears normal, Nose normal, Oropharynx normal Neck: Supple Respiratory: Airway patent, Breath sounds clear, Breath sounds equal, Respirations nonlabored Cardiovascular: RRR, Pulses normal, No rub, No murmur GI/: Soft, Nontender, No masses, Bowel sounds normal, No Organomegaly Musculoskeletal: Limited ROM Skin: Warm Neurological: Sensation intact, Motor intact, Reflexes intact, Cranial nerves intact, Alert, Oriented Psychiatric: Affect appropriate, Mood appropriate Interpretation - Radiology Interpretation Radiology Interpretation By: Radiologist Radiology Results: Positive Exam Interpreted: CT Scan Critical Care Note - Critical Care Note Total Time (mins): 0 Course - Course Orders, Labs, Meds: Orders Category Date Time Status Dexamethasone 4 mg/ml Inj [Decadron 4 mg/ml Sdv] MEDS 11/20/18 22:15 Discontinued 4 mg IM ONCE STA Hydromorphone HCl [Dilaudid 1 mg/ml Syringe] MEDS 11/20/18 22:15 Discontinued 1 mg IM ONCE STA Morphine Sulfate [Morphine 2 mg/ml Syringe] MEDS 11/21/18 00:33 Discontinued 2 mg IM ONCE STA Oxycodone-Acetaminophe 7.5-325 [Percocet 7.5-325] MEDS 11/21/18 00:19 Discontinued 1 tab PO ONCE STA CT LUMBAR SPINE W/O CONTRAST Stat RADS 11/20/18 22:15 Completed Medications Discontinued Medications Generic Name Dose Route Start Last Admin Trade Name Freq PRN Reason Stop Dose Admin Dexamethasone Sodium Phosphate 4 mg 11/20/18 22:15 11/20/18 22:20 Decadron 4 Mg/Ml Sdv IM 11/20/18 22:16 4 mg ONCE STA Administration Hydromorphone HCl 1 mg 11/20/18 22:15 11/20/18 22:25 Dilaudid 1 Mg/Ml Syringe IM 11/20/18 22:16 1 mg ONCE STA Administration Morphine Sulfate 2 mg 11/21/18 00:33 11/21/18 00:40 Morphine 2 Mg/Ml Syringe IM 11/21/18 00:34 2 mg ONCE STA Administration Oxycodone/Acetaminophen 1 tab 11/21/18 00:19 11/21/18 00:29 Percocet 7.5-325 PO 11/21/18 00:20 Not Given ONCE STA Vital Signs: Temp Pulse Resp BP Pulse Ox 11/20/18 21:58 97.6 F 74 20 106/67 96 Departure - Departure Time of Disposition: 23:59 Disposition: ADMITTED INPATIENT Discharge Problem: Compression fracture of L3 vertebra Qualifiers: Encounter type: initial encounter Qualified Code(s): S32.030A - Wedge compression fracture of third lumbar vertebra, initial encounter for closed fracture Instructions: Vertebral Compression Fracture (ED) Condition: Stable Pt referred to PMD for follow-up: Yes IPMP verified?: No Additional Instructions: rest as much as possible ---f/u wtih [facility] doctor next week---consider kyphoplasty Prescriptions: Oxycodone-Acetaminophen 5-325 [Percocet 5-325] 1 tab PO Q6H PRN #14 tablet PRN Reason: Moderate Pain Allergies/Adverse Reactions: Allergies codeine Adverse Reaction (Verified 11/20/18 22:09) meperidine HCl [From Demerol] Adverse Reaction (Verified 11/20/18 22:09) Home Medications: Ambulatory Orders Acetaminophen 325 mg PO DAILY PRN #30 tab-cap 03/03/15 Meclizine HCl 12.5 mg PO 1700 02/26/16 Oxycodone-Acetaminophen 5-325 [Percocet 5-325] 1 tab PO Q6H PRN #14 tablet 11/21 Disposition Discussed With: Patient
[2018-11-21] MEDS ORDERED: PERCOCET 7.5-325 PO STA (00:19)
[2018-11-21] MEDS ORDERED: MORPHINE 2 MG/ML SYRINGE IM STA (00:33)
[2018-11-21 03:07] VITALS: BMI 29.0
[2018-11-21] MEDS: MORPHINE 2 MG/ML SYRINGE IVP PRN ×2 (05:10→18:23)
[2018-11-21] MEDS: PRILOSEC PO SCH ×2 (07:14→09:48)
[2018-11-21] MEDS ORDERED: NON-FORMULARY MEDICATION (Amlodipine Besylate [Amlodipine Besylate] 2.5 MG) PO SCH (09:00)
[2018-11-21] MEDS ORDERED: NON-FORMULARY MEDICATION (Lisinopril [Zestril] 20 MG) PO SCH (09:00)
[2018-11-21] MEDS ORDERED: NON-FORMULARY MEDICATION (Cetirizine Hcl [Cetirizine Hcl] 10 MG) PO SCH (09:00)
[2018-11-21] MEDS: SYMBICORT 160-4.5 MCG INHALER IH SCH ×2 (09:48→20:54)
[2018-11-21] MEDS: ZESTRIL PO SCH (09:48)
[2018-11-21] MEDS: NYSTOP POWDER TP SCH ×2 (09:48→20:53)
[2018-11-21] MEDS: CLARITIN PO SCH (09:48)
[2018-11-21] MEDS: NORVASC PO SCH (09:51)
[2018-11-21] MEDS ORDERED: NON-FORMULARY MEDICATION (Meclizine Hcl [Meclizine Hcl] 12.5 MG) PO SCH (17:00)
[2018-11-21] MEDS: ANTIVERT PO SCH (17:29)
[2018-11-21] MEDS: COUMADIN PO SCH (17:30)
[2018-11-22] MEDS: PRILOSEC PO SCH (05:32)
[2018-11-22] MEDS: MORPHINE 2 MG/ML SYRINGE IVP PRN ×3 (05:45→18:17)
[2018-11-22] MEDS: SYMBICORT 160-4.5 MCG INHALER IH SCH ×2 (08:29→20:05)
[2018-11-22] MEDS: NYSTOP POWDER TP SCH ×2 (08:29→20:05)
[2018-11-22] MEDS: ZESTRIL PO SCH (08:30)
[2018-11-22] MEDS: NORVASC PO SCH (08:30)
[2018-11-22] MEDS: CLARITIN PO SCH (08:30)
[2018-11-22] MEDS ORDERED: MILK OF MAGNESIA PO STA (17:21)
[2018-11-22] MEDS: COUMADIN PO SCH (17:25)
[2018-11-22] MEDS: ANTIVERT PO SCH (17:25)
[2018-11-22] MEDS: LIDODERM PATCH 5% TP SCH (20:06)
[2018-11-23] MEDS ORDERED: MILK OF MAGNESIA PO STA (00:41)
[2018-11-23] MEDS: PRILOSEC PO SCH (05:44)
[2018-11-23] MEDS: SYMBICORT 160-4.5 MCG INHALER IH SCH ×2 (08:18→20:46)
[2018-11-23] MEDS: ZESTRIL PO SCH (08:19)
[2018-11-23] MEDS: LIDODERM PATCH 5% TP SCH (08:19)
[2018-11-23] MEDS: NYSTOP POWDER TP SCH ×2 (08:19→20:46)
[2018-11-23] MEDS: CLARITIN PO SCH (08:20)
[2018-11-23] MEDS: NORVASC PO SCH (08:20)
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
--- NOTE | 2018-11-23 13:46 | PN ---
DATE OF SERVICE: 11/22/18 SUBJECTIVE: This patient is still complaining of pain in the back more so with change in position. The pain is rated between 8 to 9 on a scale of 0 to 10. This patient was given 4 grams of Morphine. The patient will be referred to Physical Therapy as maybe she could have some treatments as hot packs and ultrasound. Will put in the referral for that purpose. Her vital signs at 2 p.m. today temperature 97.8, pulse 64, blood pressure 111/ 66, respiratory rate 20, oxygen saturation 98 on room air. If the patient's pain continues, she may need to be in the [facility] since she doesn't have any good family support. After the pain has subsided, she probably can go home. She is still working. She had acute compression fracture of L3. No retropulsion. Medications may need to be scheduled in order to prevent the p.r.n. or improve the pain. Morphine is given intravenously 2 mg. This will be given 2 mg every 6 hours. TIME SPENT: More than 30 minutes. Plan and coordination of the patient's care discussed in the presence of nurse. ERNESTINA
[2018-11-23] MEDS: MORPHINE 2 MG/ML SYRINGE IVP PRN ×2 (13:56→21:05)
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
[2018-11-23] MEDS: COUMADIN PO SCH (16:38)
[2018-11-23] MEDS: ANTIVERT PO SCH (16:38)
[2018-11-23] MEDS: COLACE PO SCH (21:32)
[2018-11-24 04:56] VITALS: BP 119/71; TEMP 97.7
[2018-11-24] MEDS: PRILOSEC PO SCH (05:53)
[2018-11-24] MEDS: NYSTOP POWDER TP SCH (08:06)
[2018-11-24] MEDS: SYMBICORT 160-4.5 MCG INHALER IH SCH (08:06)
[2018-11-24] MEDS: LIDODERM PATCH 5% TP SCH (08:07)
[2018-11-24] MEDS: ZESTRIL PO SCH (08:07)
[2018-11-24] MEDS: NORVASC PO SCH (08:07)
[2018-11-24] MEDS: CLARITIN PO SCH (08:07)
[2018-11-24] MEDS: COLACE PO SCH (08:07)
[2018-11-24] MEDS: MORPHINE 2 MG/ML SYRINGE IVP PRN (08:37)
[2018-11-24] MEDS ORDERED: MIRALAX PO STA (12:43)
--- NOTE | 2018-11-27 08:46 | PN ---
DATE OF SERVICE: 11/24/18 SUBJECTIVE: Today she is sitting up in the chair. Vital signs this morning: Temperature 97.7 , pulse rate 73, blood pressure 119/71, 02 sat 96% on room air. She states "I am kind of stiff today." She does complain of pain when she goes to a sitting to standing position. She is having issues with transferring and we need her to go to Transitional Care Unit to work on safety and to work on transfer. Plans is to go to TCU today. Discharge summary was done yesterday. Lungs are clear. Heart is regular rate and rhythm. She does have some chronic lower extremity edema. The patient is agreeable to being transferred to Transitional Care Unit. ERNESTINA
--- NOTE | 2018-11-27 08:53 | PN ---
DATE OF SERVICE: 11/23/18 SUBJECTIVE: Today Ms. Campbell is ambulating in the hallway with her walker. Her gait is unsteady without the use of a walker. She is having difficulty getting out of her bed and she does have some pain getting out of her bed without assistance. She is going to need ongoing physical therapy. OBJECTIVE: Temperature 98.6 today, pulse rate 73, blood pressure 122/75, respiratory rate 16, 02 sat 98% on room air. Today on exam lungs are clear. Heart is regular rate and rhythm. She does have some low back tenderness. We plan on discharging her to transitional care unit tomorrow. This was discussed with Case Management. Initially we were going to transfer her today but this transfer will need to be made tomorrow. ERNESTINA
--- NOTE | 2018-12-11 12:00 | DS ---
DATE OF SERVICE: 11/24/18 (FROM [facility]) PATIENT IDENTIFICATION/HOSPITAL COURSE: 83-year-old female was admitted to the hospital via the emergency room because of severe lumbar pain. The patient's pain has intensified in the last three days. She had fallen in the yard at home several days ago. The patient did have an acute L3 compression fracture by CT in the emergency room. CBC done 11/21/18 at 4:40 a.m. showed moderate anemia 10.1 hemoglobin, 33.4 hematocrit, MCV 85, MCH 25.9 low. RDW 17.3. Platelet count normal. Coagulation profile therapeutic. This patient is taking Coumadin for venous thrombosis of several years as well as PE. EGFR is 58, creatinine 0.93, BUN 13.9. Blood sugar 143.4. The rest of the chemistries were normal. 25-Hydroxy Vitamin D level was determined later was 26.8 below normal. TSH 0.663. Urinalysis 1+ blood. RBC microscopic 2-5, WBC 10-20. The patient is asymptomatic. The patient was given Dilaudid 1 mg IM in the emergency room. She also was given Dexamethasone 4 mg intramuscularly once. The patient also received one dose of Oxycodone/APAP 7.5/ 325, also one dose of Morphine Sulfate 2 mg intramuscularly. The patient was then placed on Morphine 2 mg IV q.4hr p.r.n. for pain. She was continued on her home medication Symbicort, Amlodipine 2.5 mg, Lisinopril 20 and Omeprazole 20. She also was continued on Warfarin 5 mg daily. The patient was given Miralax because of constipation. The patient's pain continued to decrease in intensity, was taking frequent pain medication. The patient is progressing well with physical and occupational therapy. The patient however needed to continue the physical therapy since she is not able to walk alone on her own and has significant difficulty getting out of bed because of the pain. Repeat CBC showed slightly lower hemoglobin/hematocrit from previous but no significant difference. The RDW is still elevated higher. The INR is better, slightly 1.62. The rest of the chemistry is unremarkable. A blood sugar is now normal. She did qualify for continued physical therapy and OT. The patient was then discharged from acute care to transitional for continued physical therapy management. The patient at time of discharge was alert, ambulatory with use of a walker with minimal help. Vital signs 11/24/18 early in the morning at 4:55 showed a temperature 97.7, pulse 73, blood pressure 119/71, respiratory rate 16, oxygen saturation 96 on room air. The patient is alert and oriented. She does not have any radicular symptoms from the lumbar pain. Lungs are clear to auscultation on both sides. Heart is audible and slightly irregular. No murmurs. Abdomen is protuberant, soft, no remarkable tenderness. No guarding. Bowel sounds active. No masses palpable. Lower extremities essentially symmetrical and equal. Anterior tibials are present, Posterior tibials absent. Upper extremities symmetrical and equal. The patient will be continued on her previous medications. FINAL DIAGNOSES: 1. Acute L3 compression fracture symptomatic. 2. Peripheral arterial disease, absent posterior tibials. 3. History of DVT and PE on Coumadin. 4. History of hypertension. 5. Peripheral arterial disease. 6. History of GERD. 7. History of thyroid disease, operated. 8. History of myocardial infarction. 9. Thyroidectomy. 10. Hysterectomy. 11. Tubal ligation. 12. Polypectomy via colonoscopy. 13. Bladder repair times two. 14. Excised right side of throat lipoma left lower leg with significant poor course of healing. 15. Cataract removal, 2019. 16. Very strong family history of malignancy. TIME SPENT: GREATER THAN 30 MINUTES MTDD
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
--- NOTE | 2019-01-22 15:37 | PN ---
DATE OF SERVICE: 11/21/18 SUBJECTIVE: This is an 83 year old female admitted to the hospital via the emergency room because of pain in the lumbar area. The pain was more intense in the last three days prompting emergency room visit. The patent claimed that she had fallen in the yard several days ago. She also claimed to have had fallen before. The patient had work up in the emergency room and did show a compression fracture of L3 with no retropulsion. The patient does have severe pain with changes of position. The patient's vital signs at 2:00 p.m. on showed a temperature of 98 degrees oral, pulse 63, blood pressure 119/70, respiratory rate 18, oxygen saturation 98 at room air. Appetite is somewhat good with 100% breakfast, 50% lunch, 75% supper. The patient expressed a desire to go back to work. She tries to convince me that her work is very light and she does not bend. She also tries to convince physical therapy while trying to evaluate her. This patient, last night, had significant pain with changes of position. I did tel her to roll over onto the side so I can listen to her chest and she could hardly tolerate the change in position. Physical therapy evaluation did come back to me that indeed she has significant pain with changes of position. The patient will have PT/OT treatment. ERNESTINA
== END 2018-11-24 13:23 | disposition swing bed (61) | DRG 552 ==
LOC: ED 21:53 → MEDSURG B 11-21 02:07
PROVIDERS: ADMIT General Practice; ATTEND General Practice
DX: Z79.01 Long term (current) use of anticoagulants; I73.9 Peripheral vascular disease, unspecified; I10 Essential (primary) hypertension; Z86.718 Personal history of other venous thrombosis and embolism; I25.2 Old myocardial infarction; K44.9 Diaphragmatic hernia without obstruction or gangrene; K21.9 Gastro-esophageal reflux disease without esophagitis; M54.5 Low back pain; S32.030A Wedge compression fracture of third lumbar vertebra, initial encounter for closed fracture

== ENCOUNTER 2018-12-29 12:59 | Outpatient (CLI) | END 2018-12-29 13:00 | disposition home or self-care (01) | LOC: LAB 12:59 | PROVIDERS: ATTEND General Practice | DX: Z51.81 Encounter for therapeutic drug level monitoring (principal); Z79.01 Long term (current) use of anticoagulants; G45.0 Vertebro-basilar artery syndrome | CPT/HCPCS: 36415; 85610 ==

== ENCOUNTER 2019-01-01 11:42 | Outpatient (CLI) ==
--- NOTE | 2019-01-01 17:55 | DI ---
EXAM: Lumbar spine five views HISTORY: Wedge compression fracture. FINDINGS: Compared to 11/30/2018. Bones are severely demineralized which limits this exam. There i s exaggerated lordosis. Severe degenerative disc and facet disease diffusely. There is a wedge-shap ed compression deformities throughout the lumbar spine with exception of L4-L5. These compression de formities appear stable since previous exam. Greatest loss of height is at L3, proximally 50%. No g ross retropulsion. Sacroiliac joints appear to be intact. Heavy vascular calcifications are present . IMPRESSION: Severe demineralization and degenerative disc/facet disease. Multilevel vertebral body c ompression fractures appear grossly stable.
== END 2019-01-01 11:43 | disposition home or self-care (01) ==
LOC: RAD 11:42
PROVIDERS: ATTEND General Practice
DX: S32.000A Wedge compression fracture of unspecified lumbar vertebra, initial encounter for closed fracture (principal)

== ENCOUNTER 2025-01-01 19:42 | Observation (INO) ==
--- NOTE | 2025-01-01 20:09 | ED.PDOC ---
General HPI ED Provider: Dr. JANETT ROBERTSON MD Chief Complaint: Nausea/Vomiting Stated Complaint: 89-year-old female history of CKD, vertigo, presents to the emergency department nausea vomiting. Patient is a poor historian. She appears very anxious and is repeating herself. She is unable to articulate her symptoms at times however she states that she ate a "nonbake cookie" while she was visiting her friend and minutes after she felt very nauseous. She has been dry heaving since then. She received 4 of Zofran via EMS however symptoms are persisted. She states she recently had a CAT scan for left upper quadrant abdominal pain however does not currently have abdominal pain. She states that she went home and she felt dizzy but she is unable to articulate if things were spinning if she has had this before. She was not having any chest pain or shortness of breath at this point in time but she states that she feels very unwell. She cannot describe how she is feeling other than that. It is noted that she does have a history of vertigo and takes meclizine. She denies fevers or chills. Time Seen by Provider: 01/01/25 19:51 Information Source: Patient and EMT Primary Care Provider: MARCIO HAYNES MD Nursing and Triage Documentation Reviewed and Agree: Yes Opioid Naive vs. Tolerant What is Opioid Naive?: *Opioid Naive implies the patient is not already taking opioids or not chronically receiving opioids on a daily basis. *PRN dosing is not "usually" associated with tolerance. *Patients are at higher risk of over-sedation and aspiration. What is Opioid Tolerant?: *Opioid Tolerance implies less than the expected response to an opioid. *Acquired tolerance is defined by the patient taking 60mg of oral morphine daily (or equianalgesic dose of another opioid) for 1 week or more. *Often associated with chronic pain. *May take more than usual dose to achieve desired pain control. Review of Systems Review Of Systems Constitutional: Denies Chills or Fever PFSH PFS Medical History Traumatic ecchymosis of left elbow S50.02XA - Contusion of left elbow, initial encounter (ICD-10) Traumatic ecchymosis of right elbow S50.01XA - Contusion of right elbow, initial encounter (ICD-10) Screening for osteoporosis Z13.820 - Encounter for screening for osteoporosis (ICD-10) Mouth ulcer K12.1 - Other forms of stomatitis (ICD-10) B12 deficiency 12/08/23 >1000 b12. B12 inj 01/26/24. E53.8 - Deficiency of other specified B group vitamins (ICD-10) Fall W19.XXXA - Unspecified fall, initial encounter (ICD-10) Pubic ramus fracture Resolved, pain free. using cane to ambulate. 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 - Diverticulum of esophagus, acquired (ICD-10) Pelvic fracture (10/21/21) acute left inferior and superior pubic rami fractures S32.9XXA - Fracture of unspecified parts of lumbosacral spine and pelvis, initial encounter for closed fracture (ICD-10) Sleep apnea G47.30 - Sleep apnea, unspecified (ICD-10) AMI (acute myocardial infarction) I21.9 - Acute myocardial infarction, unspecified (ICD-10) Diverticulosis K57.90 - Diverticulosis of intestine, part unspecified, without perforation or abscess without bleeding (ICD-10) CKD (chronic kidney disease) N18.9 - Chronic kidney disease, unspecified (ICD-10) Return to work exam Z76.89 - Persons encountering health services in other specified circumstances (ICD-10) Acquired deviated nasal septum J34.2 - Deviated nasal septum (ICD-10) Zenkers diverticulum Endoscopically repaired by Dr. 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 Repeat 09/03/22. D64.9 - Anemia, unspecified (ICD-10) Lyme disease treated A69.20 - Lyme disease, unspecified (ICD-10) Chest pain REsolved no issues 09/03/22. R07.9 - CHEST PAIN, UNSPECIFIED (ICD-10) Lower urinary tract infectious disease N39.0 - URINARY TRACT INFECTION, SITE NOT SPECIFIED (ICD-10) Pneumonia J18.9 - PNEUMONIA, UNSPECIFIED ORGANISM (ICD-10) Dizziness R42 - DIZZINESS AND GIDDINESS (ICD-10) Family History SISTER Colon cancer Liver cancer FATHER AMI (acute myocardial infarction) Social History Smoking and tobacco status: Never smoker Second hand smoke exposure: Yes Alcohol intake: never Substance use type: does not use Roseann/uatsdin: Jew Special roseann needs: No Agree to transfusion: Yes Adopted: No Caregiver/support person: Yes Household members: none Housing: apartment Marital status: W / Lives independently: Yes Daycare: no daycare Number of children: 7 Number of grandchildren: 4 Highest education level completed: high school graduate Financial difficulty paying for basics: not applicable service: No jail: No Current occupational status: retired Current occupational exposures/hazards: No 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 Pets and animals: No Leisure activites: reading History of recent travel: No Sexually active: No Do you think of yourself as: straight/heterosexual Current gender identity: female Seatbelt use: always Helmet use: No Drives intoxicated or rides with intoxicated medical driver: No Current diet type/program: regular Well-balanced diet: daily Caffeine: Yes (sweet tea) Eating out: 1-3 times/week Reads food labels: seldom or never During the past year weight has: remained stable Water heater temperature set < 120 degrees: Yes Working smoke detector in home: Yes Fire extinguisher in home: Yes Carbon monoxide detector in home: Yes Firearms in home: No What type of physical activity do you participate in?: walking Physical activity functional status: restricted by assistive devices and other Surgical History History of cataract surgery Z98.49 - Cataract extraction status, unspecified eye (ICD-10) H/O cardiac catheterization (~02/26/21) Z98.890 - Other specified postprocedural states (ICD-10) H/O thyroidectomy E89.0 - Postprocedural hypothyroidism (ICD-10) H/O esophagogastroduodenoscopy Could not get past the sphincter Z98.890 - Other specified postprocedural states (ICD-10) H/O colonoscopy Z98.890 - Other specified postprocedural states (ICD-10) Intertrochanteric fracture of left hip S72.142A - Displaced intertrochanteric fracture of left femur, initial encounter for closed fracture (ICD-10) Female Reproductive History Menstrual Age of Menarche: 14 Hx Hysterectomy: Yes Hx Tubal Ligation: No Physical Exam Physical Exam Appearance: Reports Other (Appears very anxious) Ill-appearing: Mild Eyes: Reports JUSTIN, EOMI and Conjunctiva clear ENT: Reports Ears normal, Nose normal and Oropharynx normal Neck: Supple Respiratory: Reports Airway patent and Breath sounds clear; Denies Crackles, Rhonchi or Wheezes Cardiovascular: Reports RRR, Pulses normal, No rub, No murmur and Irregular rhythm GI/: Reports Soft and Nontender Musculoskeletal: Reports Normal strength, ROM intact and No edema Skin: Reports Warm and Dry Neurological: Reports Sensation intact, Motor intact, Cranial nerves intact and Other (Moves all extremities) Interpretation EKG Interpretation EKG Interpretation By: ED Physician Time of EKG #1: 20:22 Rate: Normal Rhythm: Sinus Ectopy: None [place]: NL ST Segment: Normal Physician Progress Note Physician Progress Note: 89 y /o f presenting to ed w/ nausea, vomiting, also feeling dizzy. reported hypoxic per ems, but 96% on ra, no sob, no f/c no unable to say if she is having abd pain, possible vertigo, no current neuro deficits, but pt unable to articulate this, given age, ill appearing, poor historian exam will get broad workup, infectious with cbc, cmp, ua, cxr, urinalysis, will get ekg, troponin, in case atypical acs, cta head/neck, (no reported fall, no shel[place]), ct abd pelvis, will trx as vertigo w/ meclzine, small fluid bolus, re evaluate. Course Course 01/01/25 20:30 01/01/25 20:30 Orders, Labs, Meds: Lab Review 01/01/25 01/01/25 01/01/25 20:30 20:44 22:30 WBC 4.07 L RBC 3.30 L Hgb 11.0 L Hct 34.3 L MCV 103.9 H MCH 33.3 H MCHC 32.1 RDW Coeff of Cielo 14.3 Plt Count 129 L Immature Gran % (Auto) 0.5 Neut % (Auto) 72.5 Lymph % (Auto) 17.0 [place] % (Auto) 9.6 Eos % (Auto) 0.2 Baso % (Auto) 0.2 Neut # (Auto) 3.0 Lymph # (Auto) 0.7 [place] # (Auto) 0.4 Eos # (Auto) 0.0 Baso # (Auto) 0.0 Immature Gran # (Auto) 0.0 Sodium 131.0 L Potassium 4.10 Chloride 97.0 L Carbon Dioxide 27.0 Anion Gap 11.10 BUN 13.0 Creatinine 0.90 Estimated GFR (MDRD) 59.00 BUN/Creatinine Ratio 14.44 Glucose 129.0 H Calcium 8.70 Magnesium 2.03 Total Bilirubin 0.70 AST 30.0 ALT 12.0 Alkaline Phosphatase 55.0 Troponin I < 0.012 0.012 Total Protein 6.20 L Albumin 3.90 Globulin 2.30 Albumin/Globulin Ratio 1.69 Lipase 266.7 Influ A Molecular Assay Negative by naat Influ B Molecular Assay Negative by naat RSV Antigen Negative by naat SARS CoV-2 RNA Rapid TEX Negative Orders Category Date Time Status EKG-(ED & IP/OBS ONLY) Stat CARDIO 01/01/25 20:06 Completed NPO REMINDER: IMAGING ONCE CARE 01/01/25 20:06 Active ED ACCUCHECK ASSESSMENT .ONCE EMERGENCY 01/01/25 20:06 Active IV [ED IV/MEDIPORT/POWERPORT] .ONCE EMERGENCY 01/01/25 20:06 Active CBC W/ AUTO DIFF Stat LAB 01/01/25 20:30 Completed CMP [COMPREHENSIVE METABOLIC PANEL] Stat LAB 01/01/25 20:30 Completed COVID [SARS COV-2 RNA RAPID TEX] Stat LAB 01/01/25 20:44 Completed FLU A & B MOLECULAR [FLU A/B MOLECULAR] Stat LAB 01/01/25 20:44 Completed LIPASE Stat LAB 08/23/25 20:30 Completed MAGNESIUM Stat LAB 01/01/25 20:30 Completed RSV Stat LAB 01/01/25 20:44 Completed TROPONIN I Stat LAB 01/01/25 20:30 Completed TROPONIN I Stat LAB 01/01/25 22:30 Completed URINALYSIS C & S IF INDICATED Stat LAB 01/01/25 20:06 Uncollected URINE DRUG SCREEN (RAPID FOR ED) [DRUG SCREEN, URINE, LAB 01/01/25 20:43 Ordered RAPID] Stat 0.9 % Sodium Chloride [Saline Flush] Meds 01/01/25 20:05 Active 1 syr IVF PRN PRN Meclizine HCl [Antivert] Meds 01/01/25 20:05 Discontinued 12.5 mg PO ONCE ONE Sodium Chloride 0.9% [Sodium Chloride] 500 ml Meds 01/01/25 20:[address] ABDOMEN/PELVIS WO CONTRAST Stat RADS 01/01/25 21:[address] HEAD W/O CONTRAST Stat RADS 01/01/25 21:06 Completed Medications Generic Name Dose Route Start Last Admin Trade Name Freq PRN Reason Stop Dose Admin Sodium Chloride 1 syr 01/01/25 20:05 0.9% Sodium Chloride 10 Ml Disp.Syrin IVF PRN PRN To flush IV Discontinued Medications Generic Name Dose Route Start Last Admin Trade Name Freq PRN Reason Stop Dose Admin Sodium Chloride 500 mls @ 500 mls/hr 01/01/25 20:09 01/01/25 21:25 Sodium Chloride IV 01/01/25 21:08 Infused BOLUS ONE Infusion Meclizine HCl 12.5 mg 01/01/25 20:05 01/01/25 20:23 Meclizine Hcl 25 Mg Tablet PO 01/01/25 20:06 12.5 mg ONCE ONE Administration Vital Signs: Temp Pulse Resp BP Pulse Ox 01/01/25 19:42 97.9 F 74 16 145/64 H 100 9:07 PM. Patient feeling significantly better. Currently has no nausea. Has no sensation of vertigo. States that she had shaking episode after getting IV dye given this we will do CT abdomen pelvis without to screen for small bowel obstruction. Will get a CT head Noncon to screen for mass. At this point in time not consistent with occlusion given improvement in symptoms. Will reevaluate 11:14 PM. Patient has large hiatal hernia. I did have a long discussion with her and 2 friends at the bedside initially and whether or not she would want the surgery if the surgeon was willing to do that at this point in time she did not know however they call me back into the room and after discussing with her again she decided that the surgery is not something that she would want even if it were offered. I discussed with the hospitalist earlier here will admit for telemetry serial troponins as needed nausea meds and PT in the a.m. 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
[2025-01-01] MEDS: ANTIVERT PO ONE (20:23)
[2025-01-01] MEDS: SODIUM CHLORIDE 500 ML IV ONE (20:25)
[2025-01-01 20:43] LABS: IMMATURE GRANULOCYTE # (AUTO) 0.0 (0.0-1.0); IMMATURE GRANULOCYTE % (AUTO) 0.5 % (0.0-5.0); RDW COEFFICIENT OF VARIATION 14.3 % (11.6-14.8)
[2025-01-01 20:57] LABS: CREATININE 0.90 mg/dL (0.60-1.30)
[2025-01-01 21:12] LABS: MOLECULAR FLU A NEGATIVE BY NAAT (NEGATIVE); MOLECULAR FLU B NEGATIVE BY NAAT (NEGATIVE); RSV MOLECULAR NEGATIVE BY NAAT (NEGATIVE); SARS COV-2 RNA RAPID NAAT NEGATIVE (NEGATIVE)
--- NOTE | 2025-01-01 21:38 | CT ---
EXAMINATION: HEAD CT WITHOUT CONTRAST HISTORY: Dizziness. Nausea. TECHNIQUE: Noncontrast CT of the brain was performed with images acquired from skull base to vertex. 2-D coronal and sagittal reformatted images were obtained from the axial source images. Contrast Dose: None. CT Dose Reduction Techniques Performed: Yes. COMPARISON: 10/21/2021. FINDINGS: Topogram demonstrates no significant abnormality. Intraparenchymal hemorrhage: None. Parenchyma: Normal quezada-white differentiation. No mass effect or midline shift. Chronic: Decreased attenuation of the periventricular white matter consistent with microangiopathic ischemic change. Vascular calcifications consistent with arthrosclerosis. Extra-axial spaces and basal cisterns: Normal. Ventricles: Enlargement of the ventricles and subarachnoid spaces consistent with atrophy. Paranasal sinuses and mastoid air cells: Visualized portions of paranasal sinuses are clear. Mastoid air cells are clear. Orbits: Normal visualized portions. Sella/Skull Base: Normal. Other: Scalp and visualized soft tissues are normal. Calvarium is normal. IMPRESSION: 1. Atrophy. 2. Microangiopathic ischemic change. 3. Atherosclerosis. 4. No intracranial hemorrhage. 5. Otherwise unremarkable noncontrast CT scan of the brain. All CT scans are performed using dose optimization techniques as appropriate to the performed exam and include at least one of the following: Automated exposure control, adjustment of the mA and/or kV according to size, and the use of iterative reconstruction technique.
--- NOTE | 2025-01-01 21:43 | CT ---
EXAM: CT ABDOMEN AND PELVIS WITHOUT CONTRAST HISTORY: Nausea and vomiting. Abdominal and pelvic pain. TECHNIQUE: CT acquisition of the abdomen and pelvis from the lower thorax through the pelvis without IV contrast administration. 2-D coronal and sagittal reformatted images were obtained from the axial source images. Oral Contrast: None. CT Dose Reduction Techniques Performed: Yes. COMPARISON: Contrast enhanced CT scan of the abdomen and pelvis dated 12/29/2024. FINDINGS: Lower Thorax: Within normal limits. Liver: No mass. Normal morphology. Biliary: The gallbladder is surgically absent with clips noted in the gallbladder bed. The bile ducts are normal. Pancreas: No mass or evidence of pancreatitis. No duct dilation. Spleen: No mass. No splenomegaly. Punctate calcifications. Adrenals: No mass. Kidneys/Ureters: No renal mass. No calculus or hydronephrosis. GI Tract: No bowel dilation. No bowel wall thickening. Large hiatus hernia with most of the stomach in the chest. Peritoneal Cavity: No ascites. Retroperitoneum: No fluid collection. Lymph Nodes: No lymphadenopathy. Vasculature: There are aortic calcifications. No aortic or iliac aneurysm within limitations of noncontrast examination. Pelvis: No mass. Bladder is normal. Bones/Soft Tissues: No acute fracture. No lytic or blastic lesion. Old healed fractures of the left superior and inferior pubic rami. Open reduction internal fixation of healed left intertrochanteric fracture. Old compression fracture of T12 with 80% loss of height, L1 with 50% loss of height, L2 with 60% loss of height. Degenerative changes of the spine. Visualized abdominal wall soft tissues are normal. IMPRESSION: 1. Large hiatus hernia with most of the stomach in the chest. 2. Status post cholecystectomy. 3. Atherosclerosis. 4. Old compression fractures of the spine. 5. Old healed left pelvic fractures. 6. Prior open reduction internal fixation of the left hip. 7. Otherwise unremarkable noncontrast CT scan of the abdomen and pelvis. All CT scans are performed using dose optimization techniques as appropriate to the performed exam and include at least one of the following: Automated exposure control, adjustment of the mA and/or kV according to size, and the use of iterative reconstruction technique.
[2025-01-01] MEDS ORDERED: TYLENOL PO PRN (23:17)
[2025-01-01] MEDS ORDERED: ZOFRAN SDV IVP PRN (23:19)
[2025-01-02 00:44] VITALS: BMI 22.2
[2025-01-02 04:56] LABS: GLUCOSE, URINE (UA) Negative (NEGATIVE); LEUKOCYTE ESTERASE ,URINE Negative (NEGATIVE); URINE, BLOOD Trace-intact (NEGATIVE)
[2025-01-02 04:57] LABS: SQUAMOUS EPITHELIAL CELL,UR NOT PRESENT (0-5); URINE RBC, MICROSCOPIC 0-2 (0-2)
[2025-01-02 05:06] LABS: AMPHETAMINE SCREEN,URINE NEGATIVE (NEGATIVE); CANNABINOID SCREEN,URINE NEGATIVE (NEGATIVE); COCAIN SCREEN,URINE NEGATIVE (NEGATIVE); METHADONE URINE SCREEN NEGATIVE (NEGATIVE); METHAMPHETAMINES SCREEN,URINE NEGATIVE (NEGATIVE); OXYCODONE URINE SCREEN NEGATIVE (NEGATIVE); TRICYCLIC ANTIDEPRESSANTS URIN NEGATIVE (NEGATIVE)
[2025-01-02 05:41] VITALS: BP 134/78; PULSE 57; RESP 18; TEMP 97.7
[2025-01-02 05:42] LABS: IMMATURE GRANULOCYTE # (AUTO) 0.0 (0.0-1.0); IMMATURE GRANULOCYTE % (AUTO) 0.0 % (0.0-5.0); RDW COEFFICIENT OF VARIATION 14.5 % (11.6-14.8)
[2025-01-02 05:55] LABS: CREATININE 0.76 mg/dL (0.60-1.30)
[2025-01-02] MEDS ORDERED: VENTOLIN HFA IH PRN (07:41)
[2025-01-02] MEDS ORDERED: NON-FORMULARY MEDICATION (Levocetirizine 5 mg tablet) PO SCH (07:45)
[2025-01-02] MEDS ORDERED: NORVASC PO SCH (09:00)
[2025-01-02] MEDS ORDERED: PRILOSEC PO SCH (09:00)
[2025-01-02] MEDS: TIMOPTIC 0.5% OPTH EACHEYE SCH (09:17)
[2025-01-02] MEDS: ELIQUIS PO SCH (09:17)
[2025-01-02] MEDS: BENTYL PO SCH (09:17)
[2025-01-02] MEDS: SYMBICORT 80-4.5 MCG INHALER IH SCH (09:17)
[2025-01-02] MEDS: ZESTRIL PO SCH (09:18)
[2025-01-02] MEDS: ZYRTEC PO SCH (09:18)
[2025-01-02] MEDS: NORVASC PO SCH (09:18)
[2025-01-02] MEDS: PRILOSEC PO SCH (09:20)
--- NOTE | 2025-01-02 10:49 | PCM.SS ---
Provider Provider: REGINO TAI [facility]-C, [facility] Ad[facility] Date Admission Date: 01/01/25 Discharge Date Discharge Date: 01/02/25 Primary Care Physician Primary Care Physician: MARCIO HAYNES MD Chief Complaint Reason For Visit: NAUSEA / LIGHTHEADED History of Present Illness History of Present Illness: Admitted 01/01/25 23:34, this 89 year old /WHITE/F who presents to the ER with dry heaving. Patient states she had been visiting someone at the detention and ate a no bake chocolate cookie. She states at first everything was fine but then she walked back to her apartment and started feeling very nauseated. She was then dry heaving and felt lightheaded. She called some friends to come check on her. In the ER she was noted to have normal vitals, labs. CT head and ct a/p without acute findings. She does have a large hiatal hernia with her stomach intrathoracic. She states she would not want anything done about this. Ekg without acute abnormalities. Trops negative. Admitted to [facility] to monitor overnight. Today patient has been able to tolerate her breakfast. States she ate almost everything including a waffle, but did not eat oatmeal since it was cold. She has drank liquids as well. Took her pills without difficulty. She's had a BM. She states she is feeling better. Has not actually vomited. Has not had any more dry heaving since presenting to the ER. She has ambulated with nursing staff without difficulty. We discussed her large hiatal hernia. She states "I'm 89 years old, I don't think I'd make it through any surgeries." We discussed that she has had this hernia for some time but that it could be causing her issues when keeping foods down. She states in the last few months she's had similar episodes. We discussed eating a softer diet and chopping meats into small bites to see if that helps. Otherwise may benefit from speech eval outpatient. She is agreeable to home health, due to the weekend will pass along to social and political studies professor to set up tomorrow. Patient agrees to plan of care. [facility] Medical History Traumatic ecchymosis of left elbow S50.02XA - Contusion of left elbow, initial encounter (ICD-10) Traumatic ecchymosis of right elbow S50.01XA - Contusion of right elbow, initial encounter (ICD-10) Screening for osteoporosis Z13.820 - Encounter for screening for osteoporosis (ICD-10) Mouth ulcer K12.1 - Other forms of stomatitis (ICD-10) B12 deficiency 12/08/23 >1000 b12. B12 inj 01/26/24. E53.8 - Deficiency of other specified B group vitamins (ICD-10) Fall W19.XXXA - Unspecified fall, initial encounter (ICD-10) Pubic ramus fracture Resolved, pain free. using cane to ambulate. 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 - Diverticulum of esophagus, acquired (ICD-10) Pelvic fracture (10/21/21) acute left inferior and superior pubic rami fractures S32.9XXA - Fracture of unspecified parts of lumbosacral spine and pelvis, initial encounter for closed fracture (ICD-10) Sleep apnea G47.30 - Sleep apnea, unspecified (ICD-10) AMI (acute myocardial infarction) I21.9 - Acute myocardial infarction, unspecified (ICD-10) Diverticulosis K57.90 - Diverticulosis of intestine, part unspecified, without perforation or abscess without bleeding (ICD-10) CKD (chronic kidney disease) N18.9 - Chronic kidney disease, unspecified (ICD-10) Return to work exam Z76.89 - Persons encountering health services in other specified circumstances (ICD-10) Acquired deviated nasal septum J34.2 - Deviated nasal septum (ICD-10) [place] diverticulum Endoscopically repaired by Dr. 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 Repeat 09/03/22. D64.9 - Anemia, unspecified (ICD-10) Lyme disease treated A69.20 - Lyme disease, unspecified (ICD-10) Chest pain REsolved no issues 09/03/22. 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) H/O esophagogastroduodenoscopy Could not get past the sphincter Z98.890 - Other specified postprocedural states (ICD-10) H/O colonoscopy Z98.890 - Other specified postprocedural states (ICD-10) Intertrochanteric fracture of left hip S72.142A - Displaced intertrochanteric fracture of left femur, initial enc ounter for closed fracture (ICD-10) Family History SISTER Colon cancer Liver cancer FATHER AMI (acute myocardial infarction) Social History Smoking and tobacco status: Never smoker Second hand smoke exposure: Yes Alcohol intake: never Substance use type: does not use Roseann/christian: Quaker Special roseann needs: No Agree to transfusion: Yes Adopted: No Caregiver/support person: Yes Household members: none Housing: apartment Marital status: W / Lives independently: Yes Daycare: no daycare Number of children: 7 Number of grandchildren: 4 Highest education level completed: high school graduate Financial difficulty paying for basics: not applicable service: No jail: No Current occupational status: retired Current occupational exposures/hazards: No 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 Pets and animals: No Leisure activites: reading History of recent travel: No Sexually active: No Do you think of yourself as: straight/heterosexual Current gender identity: female Seatbelt use: always Helmet use: No Drives intoxicated or rides with intoxicated experienced truck driver: No Current diet type/program: regular Well-balanced diet: daily Caffeine: Yes (sweet tea) Eating out: 1-3 times/week Reads food labels: seldom or never During the past year weight has: remained stable Water heater temperature set < 120 degrees: Yes Working smoke detector in home: Yes Fire extinguisher in home: Yes Carbon monoxide detector in home: Yes Firearms in home: No What type of physical activity do you participate in?: walking Physical activity functional status: restricted by assistive devices and other Medications Mecications: Medications at Discharge (Home Meds & RX) Medications at Discharge (Home Meds & RX) timolol 0.5 % eye drops 1 drp BOTHEYES QDAY 10/25/20 polyethylene glycol 3350 17 gram oral powder packet (Miralax) 8.5 g PO DAILY #30 ea 11/05/21 albuterol sulfate 90 mcg/actuation aerosol inhaler 2 puff inhalation Q4H PRN shortness of breath or wheezing #8.5 grams 10/21/23 cholecalciferol (vitamin D3) 1,250 mcg (50,000 unit) capsule 1,250 mcg PO QWEEK #12 caps 07/01/24 apixaban 2.5 mg tablet (Eliquis) 2.5 mg PO BID #180 tabs 07/20/24 levocetirizine 5 mg tablet 5 mg PO QDAY #90 tabs 07/20/24 lisinopril 10 mg tablet 10 mg PO DAILY #90 tabs 07/20/24 meclizine 12.5 mg tablet 12.5 mg PO BEDTIME #90 tabs 07/20/24 amlodipine 5 mg tablet See Rx Instructions .Route .COMPLEX #90 tabs 09/13/24 acetaminophen 500 mg tablet See Rx Instructions .Route .COMPLEX #60 ea 11/11/24 omeprazole 20 mg capsule,delayed release See Rx Instructions .Route .COMPLEX #90 caps 11/11/24 trazodone 50 mg tablet 50 mg PO BEDTIME 30 days #30 tabs 11/11/24 fluticasone furoate 100 mcg-vilanterol 25 mcg/dose inhalation powder (Breo Ellipta) 1 ea inhalation DAILY #60 ea 12/13/24 dicyclomine 20 mg tablet See Rx Instructions .Route .COMPLEX #60 tabs 12/15/24 ondansetron 4 mg disintegrating tablet 4 mg PO Q8H PRN nausea #10 tabs 01/02/25 Allergies Allergies Allergy/AdvReac Type Severity Reaction Status Date / Time codeine AdvReac Delirium Verified 01/01/25 20:01 meperidine HCl (From Demerol) AdvReac Nausea, Verified 01/01/25 20:01 Vomiting Review of Systems Constitutional: Denies Fever Head: Reports Normocephalic and Atraumatic Cardiovascular: Denies Chest pain, Chest Pressure, Edema or Syncope Respiratory: Denies Cough or Shortness of air Gastrointestinal: Reports Nausea (resolved); Denies Vomiting, Diarrhea, Abdominal pain or Melena Genitourinary: Denies Dysuria or Frequency Neurological: Denies Dizziness or Syncope Physical Examination Appearance: Positive No Apparent Distress and Alert and Oriented x3 Head: Positive Normocephalic and Atraumatic Heart: Positive RRR Respiratory: Positive Breath Sounds Clear, Bilaterally; Negative Crackles, Rhonchi or Wheezes GI/: Positive Soft, Nontender, Bowel sounds normal and No Distention Extremities: Negative Edema Neurological: Positive Alert and Oriented Psychiatric: Positive Normal Judgement, Normal Insight, Affect Appropriate and Mood Appropriate Additional Findings: generally weak, no focal deficits Vital Signs (Last 4 Hours) Vital Signs Last 4 Hours: Vital Signs: Last 4 Hours 01/02/25 07:00 01/02/25 07:00 01/02/25 08:00 Oxygen Delivery Method Room Air Room Air Telemetry Type Remote Telemetry Telemetry Monitoring Continues Telemetry Heart Rate 52 L EKG CO Interval 0.16 EKG QRS Interval 0.08 Telemetry Strip Reading SB 01/02/25 08:00 01/02/25 09:00 Oxygen Delivery Method Room Air Room Air Telemetry Type Telemetry Monitoring Telemetry Heart Rate EKG CO Interval EKG QRS Interval Telemetry Strip Reading Labs This Visit Labs This Visit: Labs This Visit 01/01/25 01/01/25 01/01/25 20:30 20:44 22:30 WBC 4.07 L RBC 3.30 L Hgb 11.0 L Hct 34.3 L MCV 103.9 H MCH 33.3 H MCHC 32.1 RDW Coeff of [place] 14.3 Plt Count 129 L Immature Gran % (Auto) 0.5 Neut % (Auto) 72.5 Lymph % (Auto) 17.0 [place] % (Auto) 9.6 Eos % (Auto) 0.2 Baso % (Auto) 0.2 Neut # (Auto) 3.0 Lymph # (Auto) 0.7 [place] # (Auto) 0.4 Eos # (Auto) 0.0 Baso # (Auto) 0.0 Immature Gran # (Auto) 0.0 Sodium 131.0 L Potassium 4.10 Chloride 97.0 L Carbon Dioxide 27.0 Anion Gap 11.10 BUN 13.0 Creatinine 0.90 Estimated GFR (MDRD) 59.00 BUN/Creatinine Ratio 14.44 Glucose 129.0 H Calcium 8.70 Magnesium 2.03 Total Bilirubin 0.70 AST 30.0 ALT 12.0 Alkaline Phosphatase 55.0 Troponin I < 0.012 0.012 Total Protein 6.20 L Albumin 3.90 Globulin 2.30 Albumin/Globulin Ratio 1.69 Lipase 266.7 Urine Color Urine Clarity Urine pH Ur Specific [place] Urine Protein Urine Glucose (UA) Urine Ketones Urine Blood Urine Nitrite Urine Bilirubin Urine Urobilinogen Ur Leukocyte Esterase Urine Microscopic RBC Ur Squamous Epith Cells Urine Opiates Screen Ur Oxycodone Screen Urine Methadone Screen Ur Barbiturates Screen U Tricyclic Antidepress Ur Phencyclidine Scrn Ur Amphetamine Screen U Methamphetamines Scrn U Benzodiazepines Scrn Urine Cocaine Screen U Cannabinoids Screen Influ A Molecular Assay Negative by naat Influ B Molecular Assay Negative by naat RSV Antigen Negative by naat SARS CoV-2 RNA Rapid TEX Negative 01/02/25 01/02/25 04:50 05:31 WBC 3.30 L RBC 3.12 L Hgb 10.5 L Hct 32.8 L MCV 105.1 H MCH 33.7 H MCHC 32.0 RDW Coeff of [place] 14.5 Plt Count 134 L Immature Gran % (Auto) 0.0 Neut % (Auto) 55.8 Lymph % (Auto) 31.5 [place] % (Auto) 12.1 H Eos % (Auto) 0.3 Baso % (Auto) 0.3 Neut # (Auto) 1.8 L Lymph # (Auto) 1.0 [place] # (Auto) 0.4 Eos # (Auto) 0.0 Baso # (Auto) 0.0 Immature Gran # (Auto) 0.0 Sodium 132.0 L Potassium 4.71 Chloride 101.7 Carbon Dioxide 30.2 H Anion Gap 4.81 BUN 11.0 Creatinine 0.76 Estimated GFR (MDRD) 72.00 BUN/Creatinine Ratio 14.47 Glucose 92.7 Calcium 8.71 Magnesium 2.18 Total Bilirubin 0.73 AST 29.3 ALT 12.9 Alkaline Phosphatase 41.1 L Troponin I Total Protein 5.55 L Albumin 3.34 L Globulin 2.21 Albumin/Globulin Ratio 1.51 Lipase Urine Color Yellow Urine Clarity Clear Urine pH 7.0 Ur Specific [place] 1.010 Urine Protein Negative Urine Glucose (UA) Negative Urine Ketones Negative Urine Blood Trace-intact H Urine Nitrite Negative Urine Bilirubin Negative Urine Urobilinogen 1.0 H Ur Leukocyte Esterase Negative Urine Microscopic RBC 0-2 Ur Squamous Epith Cells Not present Urine Opiates Screen Negative Ur Oxycodone Screen Negative Urine Methadone Screen Negative Ur Barbiturates Screen Negative U Tricyclic Antidepress Negative Ur Phencyclidine Scrn Negative Ur Amphetamine Screen Negative U Methamphetamines Scrn Negative U Benzodiazepines Scrn Negative Urine Cocaine Screen Negative U Cannabinoids Screen Negative Influ A Molecular Assay Influ B Molecular Assay RSV Antigen SARS CoV-2 RNA Rapid TEX Imaging Imaging: EXAMINATION: HEAD CT WITHOUT CONTRAST HISTORY: Dizziness. Nausea. TECHNIQUE: Noncontrast CT of the brain was performed with images acquired from skull base to vertex. 2-D coronal and sagittal reformatted images were obtained from the axial source images. Contrast Dose: None. CT Dose Reduction Techniques Performed: Yes. COMPARISON: 10/21/2021. FINDINGS: Topogram demonstrates no significant abnormality. Intraparenchymal hemorrhage: None. Parenchyma: Normal quezada-white differentiation. No mass effect or midline shift. Chronic: Decreased attenuation of the periventricular white matter consistent with microangiopathic ischemic change. Vascular calcifications consistent with arthrosclerosis. Extra-axial spaces and basal cisterns: Normal. Ventricles: Enlargement of the ventricles and subarachnoid spaces consistent with atrophy. Paranasal sinuses and mastoid air cells: Visualized portions of paranasal sinus es are clear. Mastoid air cells are clear. Orbits: Normal visualized portions. Sella/Skull Base: Normal. Other: Scalp and visualized soft tissues are normal. Calvarium is normal. IMPRESSION: 1. Atrophy. 2. Microangiopathic ischemic change. 3. Atherosclerosis. 4. No intracranial hemorrhage. 5. Otherwise unremarkable noncontrast CT scan of the brain. EXAM: CT ABDOMEN AND PELVIS WITHOUT CONTRAST HISTORY: Nausea and vomiting. Abdominal and pelvic pain. TECHNIQUE: CT acquisition of the abdomen and pelvis from the lower thorax through the pelvis without IV contrast administration. 2-D coronal and sagittal reformatted images were obtained from the axial source images. Oral Contrast: None. CT Dose Reduction Techniques Performed: Yes. COMPARISON: Contrast enhanced CT scan of the abdomen and pelvis dated 12/29/2024. FINDINGS: Lower Thorax: Within normal limits. Liver: No mass. Normal morphology. Biliary: The gallbladder is surgically absent with clips noted in the gallbladder bed. The bile ducts are normal. Pancreas: No mass or evidence of pancreatitis. No duct dilation. Spleen: No mass. No splenomegaly. Punctate calcifications. Adrenals: No mass. Kidneys/Ureters: No renal mass. No calculus or hydronephrosis. GI Tract: No bowel dilation. No bowel wall thickening. Large hiatus hernia with most of the stomach in the chest. Peritoneal Cavity: No ascites. Retroperitoneum: No fluid collection. Lymph Nodes: No lymphadenopathy. Vasculature: There are aortic calcifications. No aortic or iliac aneurysm within limitations of noncontrast examination. Pelvis: No mass. Bladder is normal. Bones/Soft Tissues: No acute fracture. No lytic or blastic lesion. Old healed fractures of the left superior and inferior pubic rami. Open reduction internal fixation of healed left intertrochanteric fracture. Old compression fracture of T12 with 80% loss of height, L1 with 50% loss of height, L2 with 60% loss of height. Degenerative changes of the spine. Visualized abdominal wall soft tissues are normal. IMPRESSION: 1. Large hiatus hernia with most of the stomach in the chest. 2. Status post cholecystectomy. 3. Atherosclerosis. 4. Old compression fractures of the spine. 5. Old healed left pelvic fractures. 6. Prior open reduction internal fixation of the left hip. 7. Otherwise unremarkable noncontrast CT scan of the abdomen and pelvis. Review Review Statement: I have independently reviewed and interpreted the labs/EKGs/imaging that were ordered by the ER provider. I have reviewed all outside records that are available currently in our EMR including imaging/notes/labs from previous visits. Plan Reccomendations/Plan: 1. Large hiatal hernia with associated dry heaving after eating - Trops negative, ekg without acute findings, ct a/p without acute findings/no obstruction, no further episodes, able to tolerate po diet without difficulty today 2. Hx of dvt/pe on chronic anticoagulation - Cont home meds 3. Hypertension - Cont home meds 4. GERD - Cont home meds 5. Anemia, hx of pernicious anemia - Cont b12 outpt Today patient has been able to tolerate her breakfast. States she ate almost everything including a waffle, but did not eat oatmeal since it was cold. She has drank liquids as well. Took her pills without difficulty. She states she is feeling better. Has not actually vomited. Has not had any more dry heaving since presenting to the ER. She has ambulated with nursing staff without difficulty. We discussed her large hiatal hernia. She states "I'm 89 years old, I don't think I'd make it through any surgeries." We discussed that she has had this hernia for some time but that it could be causing her issues when keeping foods down. She states in the last few months she's had similar episodes. We discussed eating a softer diet and chopping meats into small bites to see if that helps. Otherwise may benefit from speech eval outpatient. She is agreeable to home health, due to the weekend will pass along to social and political studies professor to set up tomorrow. Patient agrees to plan of care. Will send in zofran prn. Discharge diagnoses: 1. Large hiatal hernia with associated dry heaving after eating 2. Hx of DVT/PE on chronic anticoagulation 3. Hypertension 4. GERD 5. Pernicious anemia, chronic Additional Planning: Case discussed with ED Physician, Dr. Redmond. DVT Prophylaxis: Advanced Care Plannin minutes spent discussing advance care planning. Admit to: Obs Discussed Plan of Care with Dr. Bella Lemon. Review With Patient Reviewed with Patient and Family: Patient and family have been counseled on condition and care plan and have no immediate questions. I have personally discussed and reviewed the patient's visit/current labs/imaging/decision making with Dr. Bella Lemon, my supervising attending. Total number of minutes spent with patient [85] min. More than 50% of the time spent with this patient was devoted to counseling and coordination of care. Time of Admission:01/01/25 23:34 Time of Discharge: 01/02/25 0915 Discharge Plan Discharge Discharge Orders: Discharge Patient (ONCE); Ordered 01/02/25 Ordered By: REGINO TAI Activity Restrictions/Additional Instructions: DISCHARGE TO HOME DX: NAUSEA DIET: TRY SOFT FOODS, WHEN EATING MEAT CHOP IT INTO SMALLER PIECES FOLLOW UP WITH DR. HAYNES OFFICE THIS WEEK RETURN WITH WORSENING SYMPTOMS ACTIVITY: TOLERATED A NAUSEA MEDICATION HAS BEEN SENT IN FOR YOU SHOULD YOU NEED IT A MESSAGE HAS BEEN SENT TO OUR OFFICE SERVICES REPRESENTATIVE ABOUT SETTING UP HOME HEALTH FOR YOU, YOU SHOULD GET A CALL FROM EITHER [facility] OR THE HOME HEALTH AGENCY THIS WEEK Instructions: Acute Nausea and Vomiting (DC) Care Plan Goals: Problem: Nausea Goal #1: Maintain adequate fluid volume Instructions: Monitor for signs and symptoms of dehydration Monitor I/O as needed Goal #2: Relief of nausea Instructions: Medication as ordered Position to prevent aspiration Patient Disposition: HOME SELF-CARE Prescriptions: New ondansetron 4 mg tablet,disintegrating 4 mg PO Q8H PRN (Reason: nausea) Qty: 10 0RF Continued timolol 0.5 % drops 1 drp BOTHEYES QDAY cholecalciferol (vitamin D3) 1,250 mcg (50,000 unit) capsule 1,250 mcg PO QWEEK Qty: 12 0RF meclizine 12.5 mg tablet 12.5 mg PO BEDTIME Qty: 90 1RF Eliquis 2.5 mg tablet 2.5 mg PO BID Qty: 180 1RF lisinopril 10 mg tablet 10 mg PO DAILY Qty: 90 1RF levocetirizine 5 mg tablet 5 mg PO QDAY Qty: 90 1RF amlodipine 5 mg tablet See Rx Instructions .ROUTE .COMPLEX Qty: 90 1RF Dose Instruction: TAKE ONE TABLET DAILY GENERIC FOR NORVASC Rx Instructions: TAKE ONE TABLET DAILY GENERIC FOR NORVASC omeprazole 20 mg capsule,delayed release(DR/EC) See Rx Instructions .ROUTE .COMPLEX Qty: 90 1RF Dose Instruction: TAKE 1 CAPSULE DAILY Rx Instructions: TAKE 1 CAPSULE DAILY acetaminophen 500 mg tablet See Rx Instructions .ROUTE .COMPLEX Qty: 60 1RF Dose Instruction: TAKE ONE TABLET TWICE DAILY Rx Instructions: TAKE ONE TABLET TWICE DAILY trazodone 50 mg tablet 50 mg PO BEDTIME 30 Days Qty: 30 1RF fluticasone furoate-vilanterol [Breo Ellipta] 100-25 mcg/dose blister with device 1 ea inhalation DAILY Qty: 60 2RF dicyclomine 20 mg tablet See Rx Instructions .ROUTE .COMPLEX Qty: 60 2RF Dose Instruction: TAKE ONE TABLET TWICE DAILY Rx Instructions: TAKE ONE TABLET TWICE DAILY polyethylene glycol 3350 [Miralax] 17 gram Powder In Packet 8.5 g PO DAILY Qty: 30 0RF albuterol sulfate 90 mcg/actuation HFA aerosol inhaler 2 puff inhalation Q4H PRN (Reason: shortness of breath or wheezing) Qty: 8.5 5RF Did you review [place] SMALL ENGINE SPECIALIST for ALL controlled substances?: Not Applicable Discussed opioids are addictive and Narcan is available by prescription or from pharmacy.: No Condition: Stable
[2025-01-02] MEDS ORDERED: DESYREL PO SCH (21:00)
[2025-01-02] MEDS ORDERED: ANTIVERT PO SCH (21:00)
== END 2025-01-03 07:10 | disposition home or self-care (01) ==
LOC: ED 19:42 → MEDSURG B 19:42
PROVIDERS: ADMIT Hospitalist; ATTEND Physician Assistant
DX: D64.9 Anemia, unspecified; K21.9 Gastro-esophageal reflux disease without esophagitis; K44.9 Diaphragmatic hernia without obstruction or gangrene; Z79.01 Long term (current) use of anticoagulants; I10 Essential (primary) hypertension